=== PATIENT | female | born 1995 | race Caucasian/White ===

== ENCOUNTER 2024-02-25 13:01 | Outpatient (OUT) | payer OTHER, SELFPAY ==
--- NOTE | 2024-02-25 13:03 | US_ITS ---
The [address] [address] Patient Name: LENORA PRADO MRN: [id number] date: 1995 Sex: F Assigned Patient Location: [facility] Current Patient Location: Accession/Order Number: [id number] Exam Date: 02/25/2024 13:04 Report Date: 02/26/2024 08:56 At the request of: SHEELA GERBER Procedure: US pelvis w/ transvaginal EXAM: Pelvic ultrasound HISTORY: . POLYCYSTIC OVARIAN SYNDROME COMPARISON: None. TECHNIQUE: Transabdominal and transvaginal scanning was performed FINDINGS: Scanning of the pelvis demonstrates an anteverted uterus measuring 6.9 x 2.6 x 3.4 cm. Endometrial complex measures 4 mm. Right ovary measures 4.1 x 2 x 4.1 cm. Color-flow is noted. Follicles are noted. Left ovary measures 3.1 x 2.2 x 4.3 cm. Color-flow is noted. Resistive indexes 0.6. Follicles are noted. No fluid is noted in the cul-de-sac. US/US pelvis w/ transvaginal IMPRESSION: 1. Normal-appearing uterus and endometrial complex. 2. Normal-appearing ovaries. Electronically authenticated by: MEDHAT ORDONEZ Date: 02/26/2024 08:56
== END 2024-02-25 13:02 | disposition home or self-care (01) ==
LOC: NOMS 13:02
PROVIDERS: Visit Provider Obstetrics & Gynecology
DX: E28.2 Polycystic ovarian syndrome (principal); G93.2 Benign intracranial hypertension
CPT/HCPCS: 76830; 76856

== ENCOUNTER 2024-03-20 16:10 | Outpatient (REF) | payer OTHER, SELFPAY ==
--- OUTSIDE RECORDS SUMMARY | 2024-03-20 16:17 | XMS_ITS | CCD ---
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 ?C(Tympanic) HR: 107(Peripheral) RR: 16 BP: 176/80 SpO2: 96% HT: 168 cm WT: 126.5 kg BMI: 44.82 Medical Decision Making MEDICAL DECISION MAKING Number and Complexity of Problems Differential Diagnosis: [] [facility] Data External documents reviewed: N/A My EKG interpretation: Noted in chart if applicable My CT interpretation: N/A My X-ray interpretation: Noted in chart if applicable My Ultrasound interpretation: N/A Decision rules/scores evaluated: N/A Discussed with: N/A Treatment and Disposition ED Course: Patient is nontoxic-appearing in no distress. She is somewhat anxious on my exam and states that she has been having intermittent symptoms for weeks. On my exam she feels like there is slightly diminished feeling to her lower jaw bilaterally but states that this is also just coming and going. She is otherwise neurologically intact. She is afebrile here in the ED. As these symptoms are new for her will obtain a CT of the brain without contrast to further evaluate as well as basic lab work. Blood work shows nonspecific leukocytosis but is otherwise unremarkable. CT brain shows no acute process. I discussed the results with the patient at bedside. We discussed the plan of discharge with close follow-up with both her primary care physician as well as the on-call neurologist Dr. Fan. Patient states understanding and agreement with this plan was discharged stable condition. Shared decision making: As above Code status: N/A Assessment/Plan Paresthesias (R20.2: Paresthesia of skin) Orders: Basic Metabolic Panel CBC w/ Auto Diff CT Head or Brain w/o Contrast eGFR U Beta Hcg Qual Disposition Plan Discharge Prescription List Prescriptions No active prescription medications Follow-up With When Contact Information Morenita Comer In 4 days 11/05/2023 EDT [address] [facility], [address] [place] [address]- Business (1) Additional Instructions: Matt Brown In 4 days 11/05/[address], [place] [id number] Business (1) Additional Instructions: Patient Education Paresthesia Problem List/Past Medical History Ongoing Anxiety Facial paresthesia Obesity Smoker Historical [place] palsy of left side of face PCOS - Polycystic ovarian syndrome Procedure/Surgical History tonsillectomy (2004). Medications Inpatient No active inpatient medications Home Zoloft, 10 mg, Oral, Daily Allergies No Known Allergies Social History Alcohol - Denies Alcohol Use, 04/19/2018 Current, 03/23/2020 Current, 07/20/2017 Substance Abuse - Denies Substance Abuse, 04/19/2018 Current, Marijuana, 03/23/2020 Current, Marijuana, 1-2 times per week, 07/20/2017 Tobacco - Low Risk, 07/15/2021 Cigarettes, 04/23/2023 Lab Results WBC: 16.8 E9/L High (11/01/23 02:10:00) RBC: 5.1 E12/L (11/01/23 02:10:00) HGB: 14.8 gm/dL (11/01/23 02:10:00) Hct: 44.1 % (11/01/23:10:00) MCV: 87.3 fL (11/01/23 02:10:00) MCH: 29.2 pg (11/01/23 02:10:00) MCHC: 33.5 gm/dL (11/01/23 02:10:00) RDW: 13.1 % (11/01/23:10:00) Platelet: 249 E9/L (more content not included)... Normal [facility] Comment on above: Result Comment: Elec tronically Signed By: Eusebio Agee DO\.br\Date and Time Signed: 11/01/23 03:43 EDT ED Patient Education Noteon 11-01-2023 ED Patient Education Note Neurology Paresthesia Paresthesia is an abnormal burning or prickling sensation. It is usually felt in the hands, arms, legs, or feet. However, it may occur in any part of the body. Usually, paresthesia is not painful. It may feel like: ? Tingling or numbness. ? Buzzing. ? Itching. Paresthesia may occur without any clear cause, or it may be caused by: ? Breathing too quickly (hyperventilation). ? Pressure on a nerve. ? An underlying medical condition. ? Side effects of a medicine. ? Nutritional deficiencies. ? Exposure to toxic chemicals. Most people experience temporary (transient) paresthesia at some time in their lives. For some people, it may be long-lasting (chronic) because of an underlying medical condition. If you have paresthesia that lasts a long time, you need to be evaluated by your health care provider. Follow these instructions at home: Nutrition Eat a healthy diet. This includes: ? Eating foods that are high in fiber, such as beans, whole grains, and fresh fruits and vegetables. ? Limiting foods that are high in fat and processed sugars, such as fried or sweet foods. Alcohol use ? Avoid or limit alcohol. Too much alcohol can cause a vitamin B deficiency, and vitamin B is needed for healthy nerves. ? Do not drink alcohol if: ? Your health care provider tells you not to drink. ? You are , may be , or are planning to become . ? If you drink alcohol: ? Limit how much you have to: ? 0?1 drink a day for women. ? 0?2 drinks a day for men. ? Know how much alcohol is in your drink. In the [place] one drink equals one 12 oz bottle of beer (355 mL), one 5 oz glass of wine (148 mL), or one 1? oz glass of hard liquor (44 mL). General instructions ? Take yxen-plq-cphufqi and prescription medicines only as told by your health care provider. ? Do not use any products that contain nicotine or tobacco. These products include cigarettes, chewing tobacco, and vaping devices, such as e-cigarettes. If you need help quitting, ask your health care provider. ? If you have diabetes, work closely with your health care provider to keep your blood sugar under control. ? If you have numbness in your feet: ? Check every day for signs of injury or infection. Watch for redness, warmth, and swelling. ? Wear padded socks and comfortable shoes. These help protect your feet. ? Keep all follow-up visits. This is important. Contact a health care provider if you: ? Have paresthesia that gets worse or does not go away. ? Have numbness after an injury. ? Have a burning or prickling feeling that gets worse when you walk. ? Have pain, cramps, or dizziness, or you faint. ? Develop a rash. Get help right away if you: ? Feel muscle weakness. ? Develop new weakness in an arm or leg. ? Have trouble walking or moving. ? Have problems with speech, understanding, or vision. ? Feel confused. ? Cannot control your bladder or bowel movements. These symptoms may be an emergency. Get help right away. Call 911. ? Do not wait to see if the symptoms will go away. ? Do not drive yourself to the hospital. Summary ? Paresthesia is an abnormal burning or prickling sensation that is usually felt in the hands, arms, legs, or feet. It may also occur in other parts of the body. ? Paresthesia may occur without any clear cause, or it may be caused by breathing too quickly (hyperventilation), pressure on a nerve, an underlying medical condition, side effects of a medicine, nutritional deficiencies, or exposure to toxic chemicals. ? If you have paresthesia that lasts a long time, you need to be evaluated by your health care provider. This information is not intended to replace advice given to you by your health care provider. Make sure you discuss any questions you have with your health care provider. Document Revised: 03/20/2022 Document Reviewed: 03/20/2022 Elsevier Patient Education ? 2022 [employer] Normal [facility] ED Patient Summaryon 024 ED Patient Summary [address] [address] Patient Discharge Instructions Person Information Name: LENORA PRADO Age: 28 Years Arrival Date: 11/01/2023 01:16:43 Discharge Diagnosis: Paresthesias Primary Care Physician: Morenita Comer CNP Provider Information Primary Provider: Eusebio Agee DO [employer] Department Supervisor:None The exam and treatment you received in the Emergency Department were for an urgent problem and are not intended as complete care. It is important that you follow up with a doctor, nurse practitioner, or physician?s clinical nursing assistant for ongoing care. If your symptoms become worse or you do not improve as expected and you are unable to reach your usual health care provider, you should return to the Emergency Department. We are available 24 hours a day. LENORA PRADO has been given the following list of patient education materials, prescriptions and follow-up instructions: Follow-up Instructions: With: Address: When: Matt Brown [address], [place] [address] [facility] (1) In 4 days 11/05/2023 With: Address: When: Morenita Comer [address] [place] [address], [address] [place] [address] [facility] (1) In 4 days 11/05/2023 In the event that this physician does not participate in your insurance network, please consult with your insurance company to find a nearby participating provider. Patient Education Materials: Paresthesia A MESSAGE TO ALL PATIENTS REGARDING OPIOIDS PRESCRIPTION OPIOIDS: WHAT YOU NEED TO KNOW Prescription opioids can be used to help relieve gnwtvblz-jd-bavdau pain and are often prescribed following a surgery or injury, or for certain health conditions. These medications can be an important part of the treatment but also come with serious risks. It is important to work with your healthcare provider to make sure you are getting the safest, most effective care. WHAT ARE THE RISKS AND SIDE EFFECTS OF OPIOID USE? Prescription opioids carry serious risks of addiction and overdose, especially with prolonged use. An opioid overdose, often marked by slowed breathing, can cause sudden . The use of prescription opioids can have a number of side effects as well, even when taken as directed: ? Tolerance?meaning you might need to take more of the medication for the same pain relief ? Physical dependence?meaning you have symptoms of withdrawal when a medication is stopped ? Increased sensitivity to pain ? Constipation ? Nausea, vomiting, and dry mouth ? Sleepiness and dizziness ? Confusion ? Depression ? Low levels of testosterone that can result in lower sex drive, energy, and strength ? Itching and sweating RISKS ARE GREATER WITH: ? History of drug misuse, substance use disorder, or overdose ? Mental health conditions (such as depression or anxiety) ? Sleep apnea ? Older age (65 years and older) ? Avoid alcohol while taking prescription opioids. Also, unless specifically advised by your health care provider, medications to avoid include: ? Benzodiazepines (such as Xanax or Valium) ? Muscle relaxants (such as Soma or Flexeril) ? Hypnotics (such as Ambien or Lunesta) ? Other prescription opioids KNOW YOUR OPTIONS Talk to your health care provider about ways to manage your pain that don?t involve prescription opioids. Some of these options may actually work better and have fewer risks and side effects. Options may include: ? Pain relievers such as acetaminophen, ibuprofen, and naproxen ? Some medication that are also used for depression or seizures ? Physical therapy and exercise ? Cognitive behavioral therapy, a psychological, goal-directed approach, in which patients learn how to modify physical, behavioral, and emotional triggers of pain and stress. IF YOU ARE PRESCRIBED OPIOIDS FOR PAIN: ? Never take opioids in greater amounts or more often than prescribed. ? Follow up with your primary health care provider. o Work together to create a plan on how to manage your pain. o Talk about ways to help manage your pain that don?t involve prescription opioids. o Talk about any and all concerns and side effects. ? Help prevent misuse and abuse o Never sell or share prescription opioids. o Never use another person?s prescription opioids. ? Store prescription opioids in a secure place and out of reach of others (this may include visitors, children, friends, and family). ? Safely dispose of unused prescription opioids: Find your community drug take-back program or your pharmacy mail-back program, or flush them down the toilet, following guidance from the Food and Drug Administration (www.fda.gov/Drugs/R esourcesForYou). ? Visit www.cdc.gov/drugover dose to learn about the risks of opioids abuse and overdose. ? If you believe you may be struggling with addiction, tell your health car (more content not included)... Normal [facility] HEMATOLOGYOrdered By: SYSTEM SYSTEM on 11-01-2023 Basophils/100 WBC (Bld) 0.5 % Normal 0.0 - 2.0 % Remisol Heme Basophils/Leukocytes Auto (Bld) [Pure # fraction] 0.1 E9/L Normal 0.0 - 0.2 E9/L Remisol Heme Eosinophils (Bld) [#/Vol] 0.1 E9/L Normal 0.0 - 0.5 E9/L Remisol Heme Eosinophils/100 WBC (Bld) 0.3 % Normal 0.0 - 8.0 % Remisol Heme Erythrocyte distribution width (RBC) [Ratio] 13.1 % Normal 10.9 - 14.2 % Remisol Heme Hematocrit (Bld) [Volume fraction] 44.1 % Normal 34.0 - 46.0 % Remisol Heme Hemoglobin (Bld) [Mass/Vol] 14.8 g/dL Normal 12.0 - 16.0 gm/dL Remisol Heme Lymphocytes (Bld) [#/Vol] 2.7 E9/L Normal 1.0 - 4.0 E9/L Remisol Heme Lymphocytes/100 WBC (Bld) 15.9 % Normal 14.0 - 50.0 % Remisol Heme MCH (RBC) [Entitic mass] 29.2 pg Normal 27.0 - 34.0 pg Remisol Heme MCHC (RBC) [Mass/Vol] 33.5 g/dL Normal 31.4 - 36.0 gm/dL Remisol Heme MCV (RBC) [Entitic vol] 87.3 fL Normal 80.0 - 100.0 fL Remisol Heme Monocytes (Bld) [#/Vol] 0.9 E9/L Normal 0.2 - 1.0 E9/L Remisol Heme Monocytes/100 WBC (Bld) 5.6 % Normal 4.0 - 14.0 % Remisol Heme Neutrophils (Bld) [#/Vol] 13.0 E9/L High 2.0 - 7.5 E9/L Remisol Heme Neutrophils/100 WBC (Bld) 77.7 % High 36.0 - 75.0 % Remisol Heme Platelet mean volume (Bld) [Entitic vol] 8.4 fL Normal 6.4 - 10.8 fL Remisol Heme Platelets (Bld) [#/Vol] 249.0 E9/L Normal 150.0 - 500.0 E9/L Remisol Heme RBC (Bld) [#/Vol] 5.1 E12/L Normal 4.3 - 5.9 E12/L Remisol Heme WBC corrected for nucl RBC Auto (Bld) [#/Vol] 16.8 E9/L High 4.0 - 11.0 E9/L Remisol Heme RAD - Preliminary Cat Scan R eporton 11-01-2023 RAD - Preliminary Cat Scan Report [id number] Normal [facility] SEROLOGYOrdered By: Jorden can on 11-01-2023 HCG.beta subunit (U) [Moles/Vol] Negative Normal [facility] Man Sero U BetaHcg Qualon 11-01-2023 HCG.beta subunit (U) [Moles/Vol] Negative Normal [facility] Comment on above: Performed By: #### 2 [id number] ####[facility] [address] [place] [address] eGFRon 11-01-2023 eGFR 104 mL/min/1.73 m2 Normal >=59 [facility] Comment on above: Order Comment: Order added by Discern Expert. Performed By: #### [id number] ####[facility] [address] [place] [address] Family Medicine Office/Clini c Noteon 10-02-2023 Family Medicine Office/Clinic Note Chief Complaint EST ear infection, cough HPI Staff Lenora is a 27 year old female here for an ear infection and cough 8 weeks ago was diagnosed with bells palsy- symptoms have been since then ears have been popping, itching, and feel closed painful when ears pop headaches cough History of Present Illness Reviewed and agree with above documented HPI by medical hospital sales. Portions of this record may have been created with voice recognition artificial intelligence software, specifically [employer], [employer] and or [employer]. Substitutions may have occurred due to the inherent limitations of voice recognition and artificial intelligence software. Patient is a 27-year-old female presents to [facility] care, for left-sided facial paresthesia, bilateral ear popping, left worse than right, with itchiness, sinus headaches, nonproductive cough. 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 Patient states she was placed on amoxicillin, took all her amoxicillin, continues with left-sided facial paresthesias. Patient states she is able to swallow, has a sense of taste and smell intact, states she has slight facial droop on the left, states she cannot close her left eye, but is much better than she first diagnosed with a few months ago. States she continues with a cough, but is nonproductive, not worsening at night, and without any chest pain or shortness of breath. Patient denies any worsening headache of her life, denies, sore throat, nausea or vomiting, productive cough, worsening cough, or weakness. Review of Systems PHQ Score Initial Depression Screen Score: 0 Physical Exam Vitals & Measurements T: 36.3 ?C(Oral) HR: 96(Peripheral) BP: 136/88 SpO2: 92% HT: 66 in HT: 168 cm WT: 128 kg WT: 281.6 lb BMI: 45.35 General: Well developed, well nourished, in no acute distress, patient does not appear ill or septic, no respiratory disorders noted. Answers questions appropriately and in complete sentences, and follows commands appropriately. Facial droop, more on the lower facial area, states mild, tongue does not deviate, no slurred speech or difficulty swallowing is noted. Patient is neurologically intact. Head/Face: Normocephalic/atraum atic, no upper respiratory infections noted. Facial swelling cellulitis. Eyes: Pupils equal, round, and reactive to light. Conjunctivae and sclerae normal, Ears: Bilateral TMs and bilateral external canals are both within normal limits. Hearing is intact. Nose: Clear nasal drainage is noted. Mouth: Mucous membranes moist. Normal oropharynx, and posterior pharynx without lesions or exudates. Tongue normal Neck: Neck supple. No masses or palpable cervical nodes. Trachea midline. Chest: No chest wall deformity, no chest wall tenderness Lungs: Normal respiratory effort and clear to auscultation throughout, no wheezing, no rales, coarse, or decreased breath sounds are noted on examination. Cardio: regular rate and rhythm, no murmur Pulses: Normal capillary refill Extremity: Patient is able to move all 4 extremities equally well no pain or weakness. Patient is neurovascular intact. Neurologic: Grossly normal Skin: No rashes, ulcerations, or suspicious lesions Lymph Nodes: no lad Mental Status: alert, active Assessment/Plan 27-year-old female presented to [facility] care for left sided facial paresthesia, with a current gnosis of Siddiqui's palsy, diagnosed in January 2023, patient had a slight lower facial droop, at the lip, the remaining facial exam is within normal limits. Patient was neurologically intact. Patient did not appear ill or septic, no respiratory disorder or difficulty swallowing is noted. Patient was given a prescription for Medrol Dosepak, and patient agree with the plan. 1. Facial paresthesia (R20.2: Paresthesia of skin) See above Ordered: methylPREDNISolone, = 1 packet(s), Oral, As Directed, as directed on package labeling, X 6 day(s), # 21 tab(s), Refills(s) 0, Pharmacy: [id number], 168, cm, 04/23/23 15:40:00 EDT, Height/Length Dosing, 128, kg, 04/23/23 15:40:00 EDT, Weight Dosing 2. Current smoker (F17.200: Nicotine dependence, unspecified, uncomplicated) We strongly recommend to quit tobacco use. Cigarette smoking harms nearly every organ of the body, causes many diseases, and reduces the health of smokers in general. Quitting smoking lowers your risk for smoking-related diseases and can add years to your life. We encourage you to visit www.smokefree.gov access to helpful resources including free telephone support. If you decide on prescription treatment to help you quit, we would be happy to provide these. Ordered: Current tobacco smoker 1034F 3. BMI 45.0-49.9, adult (Z68.42: Body mass index [BMI] 45.0-49.9, adult) The standard range for (more content not included)... Normal [facility] Comment on above: Result Comment: Elec tronically Signed By: WILLY ARANGO, TRACI\.br\Date and Time Signed: 04/23/23 16:46 EDT Patient Educationon 04-23-20 Patient Education Neurology Paresthesia Paresthesia is a burning or prickling feeling. This feeling can happen in any part of the body. It often happens in the hands, arms, legs, or feet. Usually, it is not painful. In most cases, the feeling goes away in a short time and is not a sign of a serious problem. If you have paresthesia that lasts a long time, you need to see your doctor. Follow these instructions at home: Nutrition Eat a healthy diet. This includes: ? Eating foods that are high in fiber. These include beans, whole grains, and fresh fruits and vegetables. ? Limiting foods that are high in fat and sugar. These include fried or sweet foods. Alcohol use ? Do not drink alcohol if: ? Your doctor tells you not to drink. ? You are , may be , or are planning to become . ? If you drink alcohol: ? Limit how much you have to: ? 0?1 drink a day for women. ? 0?2 drinks a day for men. ? Know how much alcohol is in your drink. In the [place] one drink equals one 12 oz bottle of beer (355 mL), one 5 oz glass of wine (148 mL), or one 1? oz glass of hard liquor (44 mL). General instructions ? Take bhuc-arm-itvrwou and prescription medicines only as told by your doctor. ? Do not smoke or use any products that contain nicotine or tobacco. If you need help quitting, ask your doctor. ? If you have diabetes, work with your doctor to make sure your blood sugar stays in a healthy range. ? If your feet feel numb: ? Check for redness, warmth, and swelling every day. ? Wear padded socks and comfortable shoes. These help protect your feet. ? Keep all follow-up visits. Contact a doctor if: ? You have paresthesia that gets worse or does not go away. ? You lose feeling (have numbness) after an injury. ? Your burning or prickling feeling gets worse when you walk. ? You have pain or cramps. ? You feel dizzy or you faint. ? You have a rash. Get help right away if: ? You feel weak or have new weakness in an arm or leg. ? You have trouble walking or moving. ? You have problems speaking, understanding, or seeing. ? You feel confused. ? You cannot control when you pee (urinate) or poop (have a bowel movement). These symptoms may be an emergency. Get help right away. Call 911. ? Do not wait to see if the symptoms will go away. ? Do not drive yourself to the hospital. Summary ? Paresthesia is a burning or prickling feeling. It often happens in the hands, arms, legs, or feet. ? In most cases, the feeling goes away in a short time and is not a sign of a serious problem. ? If you have paresthesia that lasts a long time, you need to be seen by your doctor. This information is not intended to replace advice given to you by your health care provider. Make sure you discuss any questions you have with your health care provider. Document Revised: 03/20/2022 Document Reviewed: 03/20/2022 [employer] Patient Education ? 2022 [employer] Nutrition BMI for Adults What is BMI? Body mass index (BMI) is a number that is calculated from a person's weight and height. BMI can help estimate how much of a person's weight is composed of fat. BMI does not measure body fat directly. Rather, it is an alternative to procedures that directly measure body fat, which can be difficult and expensive. BMI can help identify people who may be at higher risk for certain medical problems. What are BMI measurements used for? BMI is used as a screening tool to identify possible weight problems. It helps determine whether a person is obese, overweight, a healthy weight, or underweight. BMI is useful for: ? Identifying a weight problem that may be related to a medical condition or may increase the risk for medical problems. ? Promoting changes, such as changes in diet and exercise, to help reach a healthy weight. BMI screening can be repeated to see if these changes are working. How is BMI calculated? BMI involves measuring your weight in relation to your height. Both height and weight are measured, and the BMI is calculated from those numbers. This can be done either in [place] or metric measurements. Note that charts and online BMI calculators are available to help you find your BMI quickly and easily without having to do these calculations yourself. To calculate your BMI in [place] measurements: 1. Measure your weight in pounds (lb). 2. Multiply the number of pounds by 703. ? For example, for a person who weighs 180 lb, multiply that number by 703, which equals 126,540. 3. Measure your height in inches. Then multiply that number by itself to get a measurement called inches squared. ? For example, for a person who is 70 inches tall, the inches squared measurement is 70 inches x 70 inches, which equals 4,900 inches squared. 4. Divide the total from step 2 (number of lb x 703) by the total from step 3 (inches square (more content not included)... [facility] Formson 02-19-2023 Forms [id number] #1.00CD:[address] [facility] Consent for Treatmenton 01-22 Consent for Treatment [id number] #1.00CD:[address] [facility] Discharge Instructionson Discharge Instructions [id number]#1.00CD:[address] [facility] ED Clinical Summaryon 2022 ED Clinical Summary [address] [address] ED Clinical Summary Person Information Name: PRADO LENORA [place] Age: 27 Years : 1995 Sex: Female Language: [place] PCP: Morenita Comer CNP Marital Status: Single Phone: [phone] Visit Id: Visit Reason: Anxiety; Allergic reaction - minor; POSS ALLERGIC REACTION, FACIAL NUMBNESS Speciality: Acuity: 4 Enc Type: Emergency Med Service: Emergency Arrival: 02/18/2023 00:49:13 Discharge: 02/18/2023 01:59:37 LOS: 000 01:10 Checkin: 02/18/2023 00:49:13 Checkout: 02/18/2023 01:59:37 Dispo Type: Home (Routine DC) EVENTS: Event Name Event Status Request Date/Time Start Date/Time Complete Date/Time Arrive Complete 02/18/2023 00:49:13 02/18/2023 00:49:13 02/18/2023 00:49:13 Document Home Meds Request 02/18/2023 00:49:13 Triage Complete 02/18/2023 00:49:13 02/18/2023 01:01:10 02/18/2023 01:01:10 Dr Exam Complete 02/18/2023 00:52:02 02/18/2023 00:52:02 02/18/2023 00:52:02 Registration Complete 02/18/2023 00:52:02 02/18/2023 00:55:04 02/18/2023 00:55:04 Reg Complete Request 02/18/2023 00:55:04 Reg Bed Request Complete 02/18/2023 00:55:04 02/18/2023 00:55:04 02/18/2023 00:55:04 Bed Assign Complete 02/18/2023 00:57:27 02/18/2023 00:57:27 02/18/2023 00:57:27 RN Exam Complete 02/18/2023 00:57:27 02/18/2023 01:21:25 02/18/2023 01:21:25 Meds Admin Complete 02/18/2023 01:08:48 02/18/2023 01:14:35 Meds Admin Complete 02/18/2023 01:15:34 02/18/2023 01:58:58 Discharge Complete 02/18/2023 01:51:47 02/18/2023 01:59:42 02/18/2023 01:59:42 Transfer Complete 02/18/2023 01:59:42 02/18/2023 01:59:42 02/18/2023 01:59:42 ADDRESS: [address] [facility] [id number] PHYS DOC NOTES: MEDICAL INFORMATION: Prescriptions Given: New Medications [id number], [address] [place], [place] [id number], [phone] amoxicillin (amoxicillin 875 mg Tab) 1 Tablets By Mouth 2 times a day for 10 Days. Refills: 0. ocular lubricant (ocular lubricant Oint) Eye left, BID. Refills: 0. predniSONE (predniSONE 50 mg Tab) 1 Tablets By Mouth every day for 5 Days. Refills: 0. Medications to Continue with No Changes Other Medications sertraline (sertraline 50 mg Tab) 1 Tablets By Mouth every day. PATIENT EDUCATION INFORMATION: Instructions: Otitis Media, Adult, Harg-pf-Juws; Siddiqui's Palsy, Adult Follow up: With: Address: When: Morenita Comer [address] [place] [address], [address] [place] [address] Business (1) In 3 days 02/21/2023 Comments: Take the antibiotics and the steroids as prescribed to completed the course. Use the eye ointment 2-3 times per day as needed. Please follow-up with your primary care doctor next 2 to 3 days. Please return to the ED for any new or worsening symptoms. DIAGNOSIS: Siddiqui's palsy; Otitis media Normal [facility] ED Note-Physicianon 02-19-20 ED Note-Physician Basic Information Time Seen: Natali Perry DO 02/18/2023 00:52 Chief Complaint pt states she is having a allergic reaction. states tongue is tiingling. states took benadryl. states was smoking marjaunia prior to event. History of Present Illness Patient is a 27-year-old female with past medical history of anxiety, PCOS presenting to the ED for evaluation of facial tingling, weakness in addition to dry mouth. Patient states she has been having intermittent ear pain predominantly on the left side for the last several days, she used her friend's Ciprodex drops this evening and then also took Benadryl which she does not normally take. Patient states she was outside smoking marijuana and tobacco when she started noticing decrease sensation on the left side of her face in addition to tingling tongue. Patient denies any weakness in her arms or her legs, denies previous history of this. States she does get her marijuana from a dispensary has not changed dispensary's. Review of Systems A 10 point review of systems is negative except as noted above. Medical and Surgical History: Reviewed and noted Social history: Lives at home Tobacco: Denies Physical Exam Vitals & Measurements T: 36.2 ?C(Oral) HR: 126(Peripheral) RR: 20 BP: 187/95 SpO2: 100% HT: 168 cm WT: 130 kg BMI: 46.06 General: Well developed, non toxic appearing, no acute distress HEENT: Head atraumatic, Mucosa moist, hearing grossly normal, no effusion behind the right TM, left TM bulging and erythematous Neck: No JVD, tracheal deviation Cardiac: Regular rate, rhythm, no murmurs, or gallops, 2+ radial pulses Respiratory: Lungs clear to auscultation B/L, normal respiratory effort Abdomen: Soft non tender, no rebound or guarding, no peritoneal signs Extremities: No edema noted in the LE B/L, no tenderness to palpation Neurologic: Alert and oriented, speech clear, facial droop on the left side of the face, unable to close the left eye, unable to raise the eyebrows on the left, decreased sensation on the left side, no arm drift, no leg drift, sensation intact to the upper and lower extremities bilaterally, no ataxia with finger-nose testing, no change in speech Skin: No rashes or lesions Psych: Appropriate mood and behavior Medical Decision Making MEDICAL DECISION MAKING Number and Complexity of Problems Differential Diagnosis: [] [facility] Data External documents reviewed: [] My EKG interpretation: [] My CT interpretation: [] My X-ray interpretation: [] My Ultrasound interpretation: [] Decision rules/scores evaluated: [] Discussed with: [] Treatment and Disposition ED Course: Patient is a 27-year-old female presenting to the ED for evaluation of tongue numbness and tingling, ear pain and change in sensation of the face. Patient is nontoxic and on arrival, no acute distress. Patient does have left-sided facial weakness in addition she has the inability to close her left eye or raise her eyebrows on the left consistent with Siddiqui's palsy. She also has evidence of an otitis media on examination. Explained the findings to the patient that likely the otitis media is causing the Siddiqui's palsy. She is given amoxicillin in addition to prednisone in the ED. She is tachycardic hypertensive on arrival however patient does report she has significant anxiety. Patient was observed with improvement of her vitals. Patient discharged home with prednisone, amoxicillin in addition to lubricating eyedrops. She is to follow-up with her primary care doctor in the next 2 to 3 days. She is return to the ED for any new or worsening symptoms. Shared decision making: [] Code status: [] Assessment/Plan Siddiqui's palsy (G51.0: Siddiqui's palsy) Otitis media (H66.90: Otitis media, unspecified, unspecified ear) Orders: amoxicillin, 875 mg = 1 tab(s), Oral, BID, X 10 day(s), # 20 tab(s), Refills(s) 0, Pharmacy: [facility] #[id number], 168, cm, 02/18/23 1:01:00 EDT, Height/Length Dosing, 130, kg, 02/18/23 1:01:00 EDT, Weight Dosing amoxicillin, 875 mg = 1 tab(s), Tab, Oral, Once, Stop date 02/18/23 1:08:00 EDT, STAT, Start date 02/18/23 1:08:00 EDT, 02/18/23 1:08:00 EDT ocular lubricant, 1 isatu, Ointment, OPTH, Once, Stop date 02/18/23 1:15:00 EDT, STAT, Start date 02/18/23 1:15:00 EDT ocular lubricant, See Instructions, 3.5 gm, Refill(s) 0, Eye left, BID, [facility] #[id number], 168, cm, 02/18/23 1:01:00 EDT, Height/Length Dosing, 130, kg, 02/18/23 1:01:00 EDT, Weight Dosing predniSONE, 50 mg = 1 tab(s), Oral, Daily, X 5 day(s), # 5 tab(s), Refills(s) 0, [facility]: [id number], 168, cm, 02/18/23 1:01:00 EDT, Height/Length Dosing, 130, kg, 02/18/23 1:01:00 EDT, Weight Dosing predniSONE, 60 mg = 3 tab(s), Tab, Oral, Once, Stop date 02/18/23 1:08:00 EDT, STAT, Start date 02/18/23 1:08:00 EDT, 02/18/23 1:08:00 EDT Medications Administered Given amoxicillin 875 mg Tab, 875 mg, Oral predniSONE 20 mg Tab, 60 mg, Oral Disposition Plan Discharge Prescription List Prescrip (more content not included)... Normal [facility] Comment on above: Result Comment: Elec tronically Signed By: Natali Perry DO\.br\Date and Time Signed: 02/18/23 01:56 EDT ED Patient Education Noteon 02-18-2023 ED Patient Education Note ENT Otitis Media, Adult Otitis media is a condition in which the middle ear is red and swollen (inflamed) and full of fluid. The middle ear is the part of the ear that contains bones for hearing as well as air that helps send sounds to the brain. The condition usually goes away on its own. What are the causes? This condition is caused by a blockage in the eustachian tube. This tube connects the middle ear to the back of the nose. It normally allows air into the middle ear. The blockage is caused by fluid or swelling. Problems that can cause blockage include: ? A cold or infection that affects the nose, mouth, or throat. ? Allergies. ? An irritant, such as tobacco smoke. ? Adenoids that have become large. The adenoids are soft tissue located in the back of the throat, behind the nose and the roof of the mouth. ? Growth or swelling in the upper part of the throat, just behind the nose (nasopharynx). ? Damage to the ear caused by a change in pressure. This is called barotrauma. What increases the risk? You are more likely to develop this condition if you: ? Smoke or are exposed to tobacco smoke. ? Have an opening in the roof of your mouth (cleft palate). ? Have acid reflux. ? Have problems in your body's defense system (immune system). What are the signs or symptoms? Symptoms of this condition include: ? Ear pain. ? Fever. ? Problems with hearing. ? Being tired. ? Fluid leaking from the ear. ? Ringing in the ear. How is this treated? This condition can go away on its own within 3?5 days. But if the condition is caused by germs (bacteria) and does not go away on its own, or if it keeps coming back, your doctor may: ? Give you antibiotic medicines. ? Give you medicines for pain. Follow these instructions at home: ? Take qjbi-smn-upehxcg and prescription medicines only as told by your doctor. ? If you were prescribed an antibiotic medicine, take it as told by your doctor. Do not stop taking it even if you start to feel better. ? Keep all follow-up visits. Contact a doctor if: ? You have bleeding from your nose. ? There is a lump on your neck. ? You are not feeling better in 5 days. ? You feel worse instead of better. Get help right away if: ? You have pain that is not helped with medicine. ? You have swelling, redness, or pain around your ear. ? You get a stiff neck. ? You cannot move part of your face (paralysis). ? You notice that the bone behind your ear hurts when you touch it. ? You get a very bad headache. Summary ? Otitis media means that the middle ear is red, swollen, and full of fluid. ? This condition usually goes away on its own. ? If the problem does not go away, treatment may be needed. You may be given medicines to treat the infection or to treat your pain. ? If you were prescribed an antibiotic medicine, take it as told by your doctor. Do not stop taking it even if you start to feel better. ? Keep all follow-up visits. This information is not intended to replace advice given to you by your health care provider. Make sure you discuss any questions you have with your health care provider. Document Revised: 10/17/2021 Document Reviewed: 10/17/2021 [employer] Patient Education ? 2022 [employer] Neurology Siddiqui's Palsy, Adult Siddiqui's palsy is a short-term inability to move muscles in a part of the face. The inability to move, also called paralysis, results from inflammation or compression of the seventh cranial nerve. This nerve travels along the skull and under the ear to the side of the face. This nerve is responsible for facial movements that include blinking, closing the eyes, smiling, and frowning. What are the causes? The exact cause of this condition is not known. It may be caused by an infection from a virus, such as the chickenpox (herpes zoster), Milena?Ruiz, or mumps virus. What increases the risk? You are more likely to develop this condition if: ? You are . ? You have diabetes. ? You have had a recent infection in your nose, throat, or airways. ? You have a weakened body defense system (immune system). ? You have had a facial injury, such as a fracture. ? You have a family history of Siddiqui's palsy. What are the signs or symptoms? Symptoms of this condition include: ? Weakness on one side of the face. ? Drooping eyelid and corner of the mouth. ? Excessive tearing in one eye. ? Difficulty closing the eyelid. ? Dry eye. ? Drooling. ? Dry mouth. ? Changes in taste. ? Change in facial appearance. ? Pain behind one ear. ? Ringing in one or both ears. ? Sensitivity to sound in one ear. ? Facial twitching. ? Headache. ? Impaired speech. ? Dizziness. ? Difficulty eating or drinking. Most of the time, only one side of the face is affected. In rare cases, Siddiqui's palsy may affect the whole face. How is this diagnosed? This condition is diagnosed bas (more content not included)... Normal [facility] ED Patient Summaryon 023 ED Patient Summary [place] [id number] Patient Discharge Instructions Person Information Name: LENORA PRADO Age: 27 Years Arrival Date: 02/18/2023 00:49:13 Discharge Diagnosis: Siddiqui's palsy; Otitis media Primary Care Physician: Morenita Comer CNP Provider Information Primary Provider: Natali Perry DO [employer] Department Supervisor:None The exam and treatment you received in the Emergency Department were for an urgent problem and are not intended as complete care. It is important that you follow up with a doctor, nurse practitioner, or physician?s clinical nursing assistant for ongoing care. If your symptoms become worse or you do not improve as expected and you are unable to reach your usual health care provider, you should return to the Emergency Department. We are available 24 hours a day. LENORA PRADO has been given the following list of patient education materials, prescriptions and follow-up instructions: Follow-up Instructions: With: Address: When: Morenita Comer [address] [place] [address], [address] [place] [id number] Business (1) In 3 days 02/21/2023 Comments: Take the antibiotics and the steroids as prescribed to completed the course. Use the eye ointment 2-3 times per day as needed. Please follow-up with your primary care doctor next 2 to 3 days. Please return to the ED for any new or worsening symptoms. In the event that this physician does not participate in your insurance network, please consult with your insurance company to find a nearby participating provider. Patient Education Materials: Otitis Media, Adult, Gvyw-va-Ouwl; Siddiqui's Palsy, Adult A MESSAGE TO ALL PATIENTS REGARDING OPIOIDS PRESCRIPTION OPIOIDS: WHAT YOU NEED TO KNOW Prescription opioids can be used to help relieve qtysmcqa-en-qxwbbw pain and are often prescribed following a surgery or injury, or for certain health conditions. These medications can be an important part of the treatment but also come with serious risks. It is important to work with your healthcare provider to make sure you are getting the safest, most effective care. WHAT ARE THE RISKS AND SIDE EFFECTS OF OPIOID USE? Prescription opioids carry serious risks of addiction and overdose, especially with prolonged use. An opioid overdose, often marked by slowed breathing, can cause sudden . The use of prescription opioids can have a number of side effects as well, even when taken as directed: ? Tolerance?meaning you might need to take more of the medication for the same pain relief ? Physical dependence?meaning you have symptoms of withdrawal when a medication is stopped ? Increased sensitivity to pain ? Constipation ? Nausea, vomiting, and dry mouth ? Sleepiness and dizziness ? Confusion ? Depression ? Low levels of testosterone that can result in lower sex drive, energy, and strength ? Itching and sweating RISKS ARE GREATER WITH: ? History of drug misuse, substance use disorder, or overdose ? Mental health conditions (such as depression or anxiety) ? Sleep apnea ? Older age (65 years and older) ? Avoid alcohol while taking prescription opioids. Also, unless specifically advised by your health care provider, medications to avoid include: ? Benzodiazepines (such as Xanax or Valium) ? Muscle relaxants (such as Soma or Flexeril) ? Hypnotics (such as Ambien or Lunesta) ? Other prescription opioids KNOW YOUR OPTIONS Talk to your health care provider about ways to manage your pain that don?t involve prescription opioids. Some of these options may actually work better and have fewer risks and side effects. Options may include: ? Pain relievers such as acetaminophen, ibuprofen, and naproxen ? Some medication that are also used for depression or seizures ? Physical therapy and exercise ? Cognitive behavioral therapy, a psychological, goal-directed approach, in which patients learn how to modify physical, behavioral, and emotional triggers of pain and stress. IF YOU ARE PRESCRIBED OPIOIDS FOR PAIN: ? Never take opioids in greater amounts or more often than prescribed. ? Follow up with your primary health care provider. o Work together to create a plan on how to manage your pain. o Talk about ways to help manage your pain that don?t involve prescription opioids. o Talk about any and all concerns and side effects. ? Help prevent misuse and abuse o Never sell or share prescription opioids. o Never use another person?s prescription opioids. ? Store prescription opioids in a secure place and out of reach of others (this may include visitors, children, friends, and family). ? Safely dispose of unused prescription opioids: Find your community drug take-back program or your pharmacy mail-back program, or flush them down the toilet, following guidance from the Food and Drug Administration (www.fda.gov (more content not included)... Normal [facility] Vital Signs Date Time Vital Sign Value Performing Clinician Facility 11-01-2023 03:30-0400 Blood Pressure Location Eusebio Agee [facility] 11-01-2023 03:30-0400 Diastolic blood pressure 90 mm[Hg] Eusebio Agee [facility] 11-01-2023 03:30-0400 Heart rate 82 /min Eusebio Cyndie [facility] 11-01-2023 03:30-0400 Mean blood pressure 118 mm[Hg] Eusebio Cyndie [facility] 11-01-2023 03:30-0400 Respiratory rate 17 /min Eusebio Cyndie [facility] 11-01-2023 03:30-0400 SaO2% (BldA) [Mass fraction] 92 % Eusebio Cyndie [facility] 11-01-2023 03:30-0400 Systolic blood pressure 175 mm[Hg] Eusebio Cyndie [facility] 11-01-2023 03:00-0400 Diastolic blood pressure 99 mm[Hg] Eusebio Cyndie [facility] 11-01-2023 03:00-0400 Heart rate 85 /min Eusebio Cyndie [facility] 11-01-2023 03:00-0400 Mean blood pressure 124 mm[Hg] Eusebio Cyndie [facility] 11-01-2023 03:00-0400 Respiratory rate 14 /min Eusebio Cyndie [facility] 11-01-2023 03:00-0400 SaO2% (BldA) [Mass fraction] 95 % Eusebio Cyndie [facility] 11-01-2023 03:00-0400 Systolic blood pressure 173 mm[Hg] Eusebio Cyndie [facility] 11-01-2023 02:30-0400 Blood Pressure Location Eusebio Cyndie [facility] 11-01-2023 02:30-0400 Diastolic blood pressure 93 mm[Hg] Eusebio Cyndie [facility] 11-01-2023 02:30-0400 Heart rate 90 /min Eusebio Cyndie [facility] 11-01-2023 02:30-0400 Mean blood pressure 121 mm[Hg] Eusebio Cyndie [facility] 11-01-2023 02:30-0400 Respiratory rate 11 /min Eusebio Cyndie [facility] 11-01-2023 02:30-0400 SaO2% (BldA) [Mass fraction] 97 % Eusebio Cyndie [facility] 11-01-2023 02:30-0400 Systolic blood pressure 176 mm[Hg] Eusebio Cyndie [facility] 11-01-2023 01:29-0400 Body temperature 99.5 [degF] Eusebio Cyndie [facility] 11-01-2023 01:29-0400 Heart rate 107 /min Eusebio Cyndie [facility] 11-01-2023 01:29-0400 Respiratory rate 16 /min Eusebio Cyndie [facility] 04-23-2023 15:39-0400 Blood Pressure Location TRACI BIRDTIZ [facility] 04-23-2023 15:39-0400 Body temperature 97.34 [degF] TRACI BIRDTIZ [facility] 04-23-2023 15:39-0400 Diastolic blood pressure 88 mm[Hg] TRACI AGUILERA [facility] 04-23-2023 15:39-0400 Heart rate 96 /min TRACI AGUILERA [facility] 04-23-2023 15:39-0400 SaO2% (BldA) [Mass fraction] 92 % TRACI WILLY [facility] 04-23-2023 15:39-0400 Systolic blood pressure 136 mm[Hg] TRACI AGUILERA [facility] 02-18-2023 01:54-0400 Diastolic blood pressure 90 mm[Hg] Kaylinn Dokken [facility] 02-18-2023 01:54-0400 Heart rate 89 /min Kaylinn Dokken [facility] 02-18-2023 01:54-0400 Respiratory rate 18 /min [facility] [facility] 02-18-2023 01:54-0400 SaO2% (BldA) [Mass fraction] 99 % Kaylinn Dokken [facility] 02-18-2023 01:54-0400 Systolic blood pressure 142 mm[Hg] Kaylinn Dokken [facility] 02-18-2023 01:33-0400 Heart rate 93 /min Kaylinn Dokken [facility] 02-18-2023 01:33-0400 Respiratory rate 18 /min Kaylinn Dokken [facility] 02-18-2023 01:33-0400 SaO2% (BldA) [Mass fraction] 99 % Kaylinn Dokken [facility] 02-18-2023 00:57-0400 Body temperature 97.16 [degF] Kaylinn Dokken [facility] 02-18-2023 00:57-0400 Diastolic blood pressure 95 mm[Hg] Natali Perry [facility] 02-18-2023 00:57-0400 Heart rate 126 /min Natali Perry [facility] 02-18-2023 00:57-0400 Respiratory rate 20 /min Replaced By [facility] Perry [facility] 02-18-2023 00:57-0400 SaO2% (BldA) [Mass fraction] 100 [facility] 02-18-2023 00:57-0400 Systolic blood pressure 187 mm[Hg] cait Perry [facility] Encounters Encounter Date Encounter Type Care Provider Facility Start: 02-26-2024 End: 02-26-2024 ambulatory VARUN W MURCEK Not Available Start: 02-21-2024 End: 02-21-2024 Patient encounter procedure Morenita Comer Work Phone: [facility] Work Phone: Start: 02-21-2024 End: 02-21-2024 ambulatory Morenita Joshua Comer Work Phone: [facility] Work Phone: Start: 02-19-2024 End: 02-19-2024 ambulatory VARUN W MURCEK Not Available Start: 02-11-2024 End: 02-11-2024 ambulatory VARUN W MURCEK Not Available Start: 02-04-2024 End: 02-04-2024 ambulatory MELISSA CAMPOS Not Available Start: 01-28-2024 End: 01-28-2024 ambulatory SHEELA GERBER Not Available Start: 01-28-2024 End: 01-28-2024 ambulatory HIRAL LAM Not Available Start: 01-21-2024 End: 01-21-2024 ambulatory AYDIN BELLO Not Available Start: 12-10-2023 End: 12-11-2023 ambulatory Loc Helm Facility:[facility] Start: 12-10-2023 End: 12-10-2023 Patient encounter procedure Loc Helm [facility] Start: 11-29-2023 End: 11-29-2023 ambulatory LOC HELM Not Available Start: 11-01-2023 End: 11-01-2023 Emergency department patient visit Eusebio Agee Facility:[facility] Start: 11-01-2023 End: 11-01-2023 Emergency department patient visit Eusebio Agee [facility] Start: 04-23-2023 End: 04-24-2023 ambulatory NBA AGUILERA Facility:[facility] Start: 04-23-2023 End: 04-23-2023 Patient encounter procedure TRACI AGUILERA [facility] Start: 02-18-2023 End: 02-18-2023 Emergency department patient visit Natali Real Dosoco Facility:[facility] Start: 02-18-2023 End: 02-18-2023 Emergency department patient visit Natali Perry [facility] Procedures Date Procedure Procedure Detail Performing Clinician Start: 07-23-2004 Tonsillectomy Natali luna Plan of Treatment Date Care Activity Detail Author Start: 02-21-2024 [facility] Borrelia burgdorferi Ab [Interpretation] in Serum [facility] Borrelia burgdorferi IgG Ab [Presence] in Serum or Plasma by Immunoassay [facility] Borrelia burgdorferi IgG+IgM Ab [Presence] in Serum by Immunoassay [facility] Borrelia burgdorferi IgM Ab [Presence] in Serum or Plasma by Immunoassay [facility] Immunizations Immunization Date Immunization Notes Care Provider Fa didi 04-19-2016 meningococcal ACWY vaccine, unspecified formulation TRACI AGUILERA [facility] 09-27-2011 hepatitis A vaccine, unspecified formulation TRACI AGUILERA [facility] 09-27-2011 HPV, unspecified formulation TRACI AGUILERA [facility] 05-24-2011 HPV, unspecified formulation TRACI AGUILERA [facility] 05-24-2011 influenza virus vaccine, unspecified formulation TRACI AGUILERA [facility] 03-21-2011 hepatitis A vaccine, unspecified formulation TRACI AGUILERA [facility] 03-21-2011 HPV, unspecified formulation TRACI AGUILERA [facility] 03-21-2011 meningococcal ACWY vaccine, unspecified formulation TRACI AGUILERA [facility] 03-21-2011 tetanus toxoid, reduced diphtheria toxoid, and acellular pertussis vaccine, adsorbed TRACI AGUILERA [facility] 10-29-2002 DTaP, unspecified formulation TRACI AGUILERA [facility] 10-29-2002 measles, mumps and rubella virus vaccine TRACI AGUILERA [facility] 10-29-2002 poliovirus vaccine, unspecified formulation TRACI AGUILERA [facility] 03-10-1999 hepatitis B vaccine, pediatric or pediatric/adolescent dosage TRACI AGUILERA [facility] 03-10-1999 measles, mumps and rubella virus vaccine TRACI AGUILERA [facility] 01-20-1999 diphtheria, tetanus toxoids and acellular pertussis vaccine, Haemophilus influenzae type b conjugate, and poliovirus vaccine, inactivated ([id number]-[id number]) [facility] 05-12-1998 DTaP, unspecified formulation [facility] 05-12-1998 haemophilus influenz ae type b vaccine, PRP-OMP conjugate [facility] 02-18-1998 diphtheria, tetanus toxoids and acellular pertussis vaccine, Haemophilus influenzae type b conjugate, and poliovirus vaccine, inactivated ([id number]) [facility] 1997 diphtheria, tetanus toxoids and acellular pertussis vaccine, Haemophilus influenzae type b conjugate, and poliovirus vaccine, inactivated (QLwY-Pen-GGF) [facility] 1997 hepatitis B vaccine, pediatric or pediatric/adolescent dosage [facility] 1997 hepatitis B vaccine, pediatric or pediatric/adolescent dosage [facility] NEGATED: Highlighted row has not occurred!04-23-2023 influenza virus vaccine, unspecified formulation [facility] NEGATED: Highlighted row has not occurred!04-23-2023 SARS-CoV-2 mRNA (tozinameran 5y-11y) vaccine [facility] Payers Date Payer Category Payer Unknown [id number] 2023 Self-pay 1997 Unknown [id number] 1997 Unknown [id number] 1997 Unknown [id number] 1997 Unknown [id number] 1997 Unknown [id number] 1997 Unknown [id number] 1997 Unknown [id number] 1997 Unknown [id number] [id number] 1997 Unknown [id number] 1997 Unknown [id number] [id number] 1997 Unknown [id number] [id number] 1997 Unknown [id number] [id number] 1997 Unknown [id number] Medicaid [employer] [id number] Unknown Regular Auto/Liability 35-C4 [id number] Unknown [id number] Social History Date Type Detail Facility Start: 07-15-2021 Tobacco smoking status Ex-smoker (finding) [facility] Tobacco smoking status Never [facility] Sex Assigned At Female [facility] Tobacco Cigarettes [facility] Comment on above: smokes 1 pack per we ek Tobacco smoking status No Smoking Status Entered [facility] Start: 07-06-2019 Tobacco smoking status NHIS Current some day smoker [facility] Start: 1995 Sex Assigned At Female F [facility] Functional Status Date Assessment Result Facility 11-01-2023 Functional Status N/A [facility] 04-23-2023 Functional Status N/A [facility] 02-18-2023 Functional Status N/A [facility] Evaluation + Plan note 11-01-2023 Note Date & Type Note Facility 11-01-2023 Evaluation + Plan note Extrac kiersten from: Title:ED Note Author:Eusebio Agee DO Date :11/01/23 Paresthesias (R20.2: Paresth esia of skin) Orders: Basic Metabolic Panel CBC w/ Auto Diff CT Head or Brain w/o Contrast eGFR U Beta Hcg Qual [facility] Hospital Discharge instructions 11-01-2023 Note Date & Type Note Facility 11-01-2023 Hospital Discharg e instructions Patient Education 11/01/2023 03:51:58 Paresthesia Paresthesia Paresthesia is an abnormal burning or prickling sensation. It is usually felt in the hands, arms, legs, or feet. However, it may occur in any part of the body. Usually, paresthesia is not painful. It may feel like: Tingling or numbness. Buzzing. Itching. Paresthesia may occur without any clear cause, or it may be caused by: Breathing too quickly (hyperventilation). Pressure on a nerve. An underlying medical condition. Side effects of a medicine. Nutritional deficiencies. Exposure to toxic chemicals. Most people experience temporary (transient) paresthesia at some time in their lives. For some people, it may be long-lasting (chronic) because of an underlying medical condition. If you have paresthesia that lasts a long time, you need to be evaluated by your health care provider. Follow these instructions at home: Nutrition Eat a healthy diet. This includes: Eating foods that are high in fiber, such as beans, whole grains, and fresh fruits and vegetables. Limiting foods that are high in fat and processed sugars, such as fried or sweet foods. Alcohol use Avoid or limit alcohol. Too much alcohol can cause a vitamin B deficiency, and vitamin B is needed for healthy nerves. Do not drink alcohol if: ?Your health care provider tells you not to drink. ?You are , may be , or are planning to become . If you drink alcohol: ?Limit how much you have to: ?0 1 drink a day for women. ?0 2 drinks a day for men. ?Know how much alcohol is in your drink. In the [place] one drink equals one 12 oz bottle of beer (355 mL), one 5 oz glass of wine (148 mL), or one 1 oz glass of hard liquor (44 mL). General instructions Take rwzz-okf-xwojbaf and prescription medicines only as told by your health care provider. Do not use any products that contain nicotine or tobacco. These products include cigarettes, chewing tobacco, and vaping devices, such as e-cigarettes. If you need help quitting, ask your health care provider. If you have diabetes, work closely with your health care provider to keep your blood sugar under control. If you have numbness in your feet: ?Check every day for signs of injury or infection. Watch for redness, warmth, and swelling. ?Wear padded socks and comfortable shoes. These help protect your feet. Keep all follow-up visits. This is important. Contact a health care provider if you: Have paresthesia that gets worse or does not go away. Have numbness after an injury. Have a burning or prickling feeling that gets worse when you walk. Have pain, cramps, or dizziness, or you faint. Develop a rash. Get help right away if you: Feel muscle weakness. Develop new weakness in an arm or leg. Have trouble walking or moving. Have problems with speech, understanding, or vision. Feel confused. Cannot control your bladder or bowel movements. These symptoms may be an emergency. Get help right away. Call 911. Do not wait to see if the symptoms will go away. Do not drive yourself to the hospital. Summary Paresthesia is an abnormal burning or prickling sensation that is usually felt in the hands, arms, legs, or feet. It may also occur in other parts of the body. Paresthesia may occur without any clear cause, or it may be caused by breathing too quickly (hyperventilation), pressure on a nerve, an underlying medical condition, side effects of a medicine, nutritional deficiencies, or exposure to toxic chemicals. If you have paresthesia that lasts a long time, you need to be evaluated by your health care provider. This information is not intended to replace advice given to you by your health care provider. Make sure you discuss any questions you have with your health care provider. Document Revised: 03/20/2022 Document Reviewed: 03/20/2022 [employer] Patient Education 2022 [employer] Follow Up Care 11/01/2023 01:20:14 With:Matt Brown Address: [address] [place] [address]- Business (1) When:11/05/2023 With:Morenita Comer Address: [address], [address] [place] [address]- Business (1) When:11/05/2023 [facility] Hospital Discharge instructions 04-23-2023 Note Date & Type Note Facility 04-23-2023 Hospital Discharg e instructions Patient Education 04/23/2023 16:46:23 BMI for Adults BMI for Adults What is BMI? Body mass index (BMI) is a number that is calculated from a person's weight and height. BMI can help estimate how much of a person's weight is composed of fat. BMI does not measure body fat directly. Rather, it is an alternative to procedures that directly measure body fat, which can be difficult and expensive. BMI can help identify people who may be at higher risk for certain medical problems. What are BMI measurements used for? BMI is used as a screening tool to identify possible weight problems. It helps determine whether a person is obese, overweight, a healthy weight, or underweight. BMI is useful for: Identifying a weight problem that may be related to a medical condition or may increase the risk for medical problems. Promoting changes, such as changes in diet and exercise, to help reach a healthy weight. BMI screening can be repeated to see if these changes are working. How is BMI calculated? BMI involves measuring your weight in relation to your height. Both height and weight are measured, and the BMI is calculated from those numbers. This can be done either in [place] or metric measurements. Note that charts and online BMI calculators are available to help you find your BMI quickly and easily without having to do these calculations yourself. To calculate your BMI in [place] measurements: 1.Measure your weight in pounds (lb). 2.Multiply the number of pounds by 703. For example, for a person who weighs 180 lb, multiply that number by 703, which equals 126,540. 3.Measure your height in inches. Then multiply that number by itself to get a measurement called inches squared. For example, for a person who is 70 inches tall, the inches squared measurement is 70 inches x 70 inches, which equals 4,900 inches squared. 4.Divide the total from step 2 (number of lb x 703) by the total from step 3 (inches squared): 126,540 4,900 = 25.8. This is your BMI. To calculate your BMI in metric measurements: 1.Measure your weight in kilograms (kg). 2.Measure your height in meters (m). Then multiply that number by itself to get a measurement called meters squared. For example, for a person who is 1.75 m tall, the meters squared measurement is 1.75 m x 1.75 m, which is equal to 3.1 meters squared. 3.Divide the number of kilograms (your weight) by the meters squared number. In this example: 70 3.1 = 22.6. This is your BMI. What do the results mean? BMI charts are used to identify whether you are underweight, normal weight, overweight, or obese. The following guidelines will be used: Underweight: BMI less than 18.5. Normal weight: BMI between 18.5 and 24.9. Overweight: BMI between 25 and 29.9. Obese: BMI of 30 or above. Keep these notes in mind: Weight includes both fat and muscle, so someone with a muscular build, such as an athlete, may have a BMI that is higher than 24.9. In cases like these, BMI is not an accurate measure of body fat. To determine if excess body fat is the cause of a BMI of 25 or higher, further assessments may need to be done by a health care provider. BMI is usually interpreted in the same way for men and women. Where to find more information For more information about BMI, including tools to quickly calculate your BMI, go to these websites: Centers for Disease Control and Prevention: www.cdc.gov [place] Heart Association: www.heart.org National Heart, Lung, and Blood [place]: www.nhlbi.nih.gov Summary Body mass index (BMI) is a number that is calculated from a person's weight and height. BMI may help estimate how much of a person's weight is composed of fat. BMI can help identify those who may be at higher risk for certain medical problems. BMI can be measured using [place] measurements or metric measurements. BMI charts are used to identify whether you are underweight, normal weight, overweight, or obese. This information is not intended to replace advice given to you by your health care provider. Make sure you discuss any questions you have with your health care provider. Document Revised: 03/31/2020 Document Reviewed: 02/06/2020 [employer] Patient Education 2022 [employer]. 04/23/2023 16:46:19 Steps to Quit Smoking, Dncd-jx-Zkxo Steps to Quit Smoking Smoking tobacco is the leading cause of preventable . It can affect almost every organ in the body. Smoking puts you and people around you at risk for many serious, long-lasting (chronic) diseases. Quitting smoking can be hard, but it is one of the best things that you can do for your health. It is never too late to quit. Do not give up if you cannot quit the first time. Some people need to try many times to quit. Do your best to stick to your quit plan, and talk with your doctor if you have any questions or concerns. How do I get ready to quit? Pick a date to quit. Set a date within the next 2 weeks to give you time to prepare. Write down the reasons why you are quitting. Keep this list in places where you will see it often. Tell your family, friends, and co-workers that you are quitting. Their support is important. Talk with your doctor about the choices that may help you quit. Find out if your health insurance will pay for these treatments. Know the people, places, things, and activities that make you want to smoke (triggers). Avoid them. What first steps can I take to quit smoking? Throw away all cigarettes at home, at work, and in your car. Throw away the things that you use when you smoke, such as ashtrays and lighters. Clean your car. Empty the ashtray. Clean your home, including curtains and carpets. What can I do to help me quit smoking? Talk with your doctor about taking medicines and seeing a counselor. You are more likely to succeed when you do both. If you are or : Talk with your doctor about counseling or other ways to quit smoking. Do not take medicine to help you quit smoking unless your doctor tells you to. Quit right away Quit smoking completely, instead of slowly cutting back on how much you smoke over a period of time. Stopping smoking right away may be more successful than slowly quitting. Go to counseling. In-person is best if this is an option. You are more likely to quit if you go to counseling sessions regularly. Take medicine You may take medicines to help you quit. Some medicines need a prescription, and some you can buy ctlv-rlp-anbvoad. Some medicines may contain a drug called nicotine to replace the nicotine in cigarettes. Medicines may: Help you stop having the desire to smoke (cravings). Help to stop the problems that come when you stop smoking (withdrawal symptoms). Your doctor may ask you to use: Nicotine patches, gum, or lozenges. Nicotine inhalers or sprays. Non-nicotine medicine that you take by mouth. Find resources Find resources and other ways to help you quit smoking and remain smoke-free after you quit. They include: Online chats with a counselor. Phone quitlines. Printed self-help materials. Support groups or group counseling. Text messaging programs. Mobile phone apps. Use apps on your mobile phone or tablet that can help you stick to your quit plan. Examples of free services include Quit Guide from the CDC and smokefree.gov What can I do to make it easier to quit? Talk to your family and friends. Ask them to support and encourage you. Call a phone quitline, such as 1-489-LAUQ-NOW, reach out to support groups, or work with a counselor. Ask people who smoke to not smoke around you. Avoid places that make you want to smoke, such as: ?Bars. ?Parties. ?Smoke-break areas at work. Spend time with people who do not smoke. Lower the stress in your life. Stress can make you want to smoke. Try these things to lower stress: ?Getting regular exercise. ?Doing deep-breathing exercises. ?Doing yoga. ?Meditating. What benefits will I see if I quit smoking? Over time, you may have: A better sense of smell and taste. Less coughing and sore throat. A slower heart rate. Lower blood pressure. Clearer skin. Better breathing. Fewer sick days. Summary Quitting smoking can be hard, but it is one of the best things that you can do for your health. Do not give up if you cannot quit the first time. Some people need to try many times to quit. When you decide to quit smoking, make a plan to help you succeed. Quit smoking right away, not slowly over a period of time. When you start quitting, get help and support to keep you smoke-free. This information is not intended to replace advice given to you by your health care provider. Make sure you discuss any questions you have with your health care provider. Document Revised: 06/30/2022 Document Reviewed: 06/30/2022 [employer] Patient Education 2022 [employer]. 04/23/2023 16:46:14 Paresthesia, Czfv-bg-Jbwv Paresthesia Paresthesia is a burning or prickling feeling. This feeling can happen in any part of the body. It often happens in the hands, arms, legs, or feet. Usually, it is not painful. In most cases, the feeling goes away in a short time and is not a sign of a serious problem. If you have paresthesia that lasts a long time, you need to see your doctor. Follow these instructions at home: Nutrition Eat a healthy diet. This includes: Eating foods that are high in fiber. These include beans, whole grains, and fresh fruits and vegetables. Limiting foods that are high in fat and sugar. These include fried or sweet foods. Alcohol use Do not drink alcohol if: ?Your doctor tells you not to drink. ?You are , may be , or are planning to become . If you drink alcohol: ?Limit how much you have to: ?0 1 drink a day for women. ?0 2 drinks a day for men. ?Know how much alcohol is in your drink. In the [place] one drink equals one 12 oz bottle of beer (355 mL), one 5 oz glass of wine (148 mL), or one 1 oz glass of hard liquor (44 mL). General instructions Take dvyp-hxd-uzfggpf and prescription medicines only as told by your doctor. Do not smoke or use any products that contain nicotine or tobacco. If you need help quitting, ask your doctor. If you have diabetes, work with your doctor to make sure your blood sugar stays in a healthy range. If your feet feel numb: ?Check for redness, warmth, and swelling every day. ?Wear padded socks and comfortable shoes. These help protect your feet. Keep all follow-up visits. Contact a doctor if: You have paresthesia that gets worse or does not go away. You lose feeling (have numbness) after an injury. Your burning or prickling feeling gets worse when you walk. You have pain or cramps. You feel dizzy or you faint. You have a rash. Get help right away if: You feel weak or have new weakness in an arm or leg. You have trouble walking or moving. You have problems speaking, understanding, or seeing. You feel confused. You cannot control when you pee (urinate) or poop (have a bowel movement). These symptoms may be an emergency. Get help right away. Call 911. Do not wait to see if the symptoms will go away. Do not drive yourself to the hospital. Summary Paresthesia is a burning or prickling feeling. It often happens in the hands, arms, legs, or feet. In most cases, the feeling goes away in a short time and is not a sign of a serious problem. If you have paresthesia that lasts a long time, you need to be seen by your doctor. This information is not intended to replace advice given to you by your health care provider. Make sure you discuss any questions you have with your health care provider. Document Revised: 03/20/2022 Document Reviewed: 03/20/2022 [employer] Patient Education 2022 [employer]. 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) Otitis media (H66.90: Otitis media, unspecified, unspecified ear) Orders: amoxicillin, 875 mg = 1 tab(s), Oral, BID, X 10 day(s), # 20 tab(s), Refills(s) 0, Pharmacy: [facility] #[id number], 168, cm, 02/18/23 1:01:00 EDT, Height/Length Dosing, 130, kg, 02/18/23 1:01:00 EDT, Weight Dosing amoxicillin, 875 mg = 1 tab(s), Tab, Oral, Once, Stop date 02/18/23 1:08:00 EDT, STAT, Start date 02/18/23 1:08:00 EDT, 02/18/23 1:08:00 EDT ocular lubricant, 1 isatu, Ointment, OPTH, Once, Stop date 02/18/23 1:15:00 EDT, STAT, Start date 02/18/23 1:15:00 EDT ocular lubricant, See Instructions, 3.5 gm, Refill(s) 0, Eye left, BID, [id number], 168, cm, 02/18/23 1:01:00 EDT, Height/Length Dosing, 130, kg, 02/18/23 1:01:00 EDT, Weight Dosing predniSONE, 50 mg = 1 tab(s), Oral, Daily, X 5 day(s), # 5 tab(s), Refills(s) 0, Pharmacy: [facility] #[id number], 168, cm, 02/18/23 1:01:00 EDT, Height/Length Dosing, 130, kg, 02/18/23 1:01:00 EDT, Weight Dosing predniSONE, 60 mg = 3 tab(s), Tab, Oral, Once, Stop date 02/18/23 1:08:00 EDT, STAT, Start date 02/18/23 1:08:00 EDT, 02/18/23 1:08:00 EDT [facility] Hospital Discharge instructions 02-18-2023 Note Date & Type Note Facility 02-18-2023 Hospital Discharg e instructions Patient Education 02/18/2023 01:59:43 Otitis Media, Adult, Zczw-rx-Trzx Otitis Media, Adult Otitis media is a condition in which the middle ear is red and swollen (inflamed) and full of fluid. The middle ear is the part of the ear that contains bones for hearing as well as air that helps send sounds to the brain. The condition usually goes away on its own. What are the causes? This condition is caused by a blockage in the eustachian tube. This tube connects the middle ear to the back of the nose. It normally allows air into the middle ear. The blockage is caused by fluid or swelling. Problems that can cause blockage include: A cold or infection that affects the nose, mouth, or throat. Allergies. An irritant, such as tobacco smoke. Adenoids that have become large. The adenoids are soft tissue located in the back of the throat, behind the nose and the roof of the mouth. Growth or swelling in the upper part of the throat, just behind the nose (nasopharynx). Damage to the ear caused by a change in pressure. This is called barotrauma. What increases the risk? You are more likely to develop this condition if you: Smoke or are exposed to tobacco smoke. Have an opening in the roof of your mouth (cleft palate). Have acid reflux. Have problems in your body's defense system (immune system). What are the signs or symptoms? Symptoms of this condition include: Ear pain. Fever. Problems with hearing. Being tired. Fluid leaking from the ear. Ringing in the ear. How is this treated? This condition can go away on its own within 3 5 days. But if the condition is caused by germs (bacteria) and does not go away on its own, or if it keeps coming back, your doctor may: Give you antibiotic medicines. Give you medicines for pain. Follow these instructions at home: Take ytgq-eki-zuqcldz and prescription medicines only as told by your doctor. If you were prescribed an antibiotic medicine, take it as told by your doctor. Do not stop taking it even if you start to feel better. Keep all follow-up visits. Contact a doctor if: You have bleeding from your nose. There is a lump on your neck. You are not feeling better in 5 days. You feel worse instead of better. Get help right away if: You have pain that is not helped with medicine. You have swelling, redness, or pain around your ear. You get a stiff neck. You cannot move part of your face (paralysis). You notice that the bone behind your ear hurts when you touch it. You get a very bad headache. Summary Otitis media means that the middle ear is red, swollen, and full of fluid. This condition usually goes away on its own. If the problem does not go away, treatment may be needed. You may be given medicines to treat the infection or to treat your pain. If you were prescribed an antibiotic medicine, take it as told by your doctor. Do not stop taking it even if you start to feel better. Keep all follow-up visits. This information is not intended to replace advice given to you by your health care provider. Make sure you discuss any questions you have with your health care provider. Document Revised: 10/17/2021 Document Reviewed: 10/17/2021 [employer] Patient Education 2022 [employer]. 02/18/2023 01:59:43 Siddiqui's Palsy, Adult Siddiqui's Palsy, Adult Siddiqui's palsy is a short-term inability to move muscles in a part of the face. The inability to move, also called paralysis, results from inflammation or compression of the seventh cranial nerve. This nerve travels along the skull and under the ear to the side of the face. This nerve is responsible for facial movements that include blinking, closing the eyes, smiling, and frowning. What are the causes? The exact cause of this condition is not known. It may be caused by an infection from a virus, such as the chickenpox (herpes zoster), Milena Ruiz, or mumps virus. What increases the risk? You are more likely to develop this condition if: You are . You have diabetes. You have had a recent infection in your nose, throat, or airways. You have a weakened body defense system (immune system). You have had a facial injury, such as a fracture. You have a family history of Siddiqui's palsy. What are the signs or symptoms? Symptoms of this condition include: Weakness on one side of the face. Drooping eyelid and corner of the mouth. Excessive tearing in one eye. Difficulty closing the eyelid. Dry eye. Drooling. Dry mouth. Changes in taste. Change in facial appearance. Pain behind one ear. Ringing in one or both ears. Sensitivity to sound in one ear. Facial twitching. Headache. Impaired speech. Dizziness. Difficulty eating or drinking. Most of the time, only one side of the face is affected. In rare cases, Siddiqui's palsy may affect the whole face. How is this diagnosed? This condition is diagnosed based on: Your symptoms. Your medical history. A physical exam. You may also have to see health care providers who specialize in disorders of the nerves (neurologist) or diseases and conditions of the eye (childhood teacher). You may have tests, such as: A test to check for nerve damage (electromyogram). Imaging studies, such as a CT scan or an MRI. Blood tests. How is this treated? This condition affects every person differently. Sometimes symptoms go away without treatment within a couple weeks. If treatment is needed, it varies from person to person. The goal of treatment is to reduce inflammation and protect the eye from damage. Treatment for Siddiqui's palsy may include: Medicines, such as: ?Steroids to reduce swelling and inflammation. ?Antiviral medicines. ?Pain relievers, including aspirin, acetaminophen, or ibuprofen. Eye drops or ointment to keep your eye moist. Eye protection, if you cannot close your eye. Exercises or massage to regain muscle strength and function (physical therapy). Follow these instructions at home: Take egly-atc-yzjjyro and prescription medicines only as told by your health care provider. If your eye is affected: ?Keep your eye moist with eye drops or ointment as told by your health care provider. ?Follow instructions for eye care and protection as told by your health care provider. Do any physical therapy exercises as told by your health care provider. Keep all follow-up visits. This is important. Contact a health care provider if: You have a fever or chills. Your symptoms do not get better within 2 3 weeks, or your symptoms get worse. Your eye is red, irritated, or painful. You have new symptoms. Get help right away if: You have weakness or numbness in a part of your body other than your face. You have trouble swallowing. You develop neck pain or stiffness. You develop dizziness or shortness of breath. Summary Siddiqui's palsy is a short-term inability to move muscles in a part of the face. The inability to move results from inflammation or compression of the facial nerve. This condition affects every person differently. Sometimes symptoms go away without treatment within a couple weeks. If treatment is needed, it varies from person to person. The goal of treatment is to reduce inflammation and protect the eye from damage. Contact your health care provider if your symptoms do not get better within 2 3 weeks, or your symptoms get worse. This information is not intended to replace advice given to you by your health care provider. Make sure you discuss any questions you have with your health care provider. Document Revised: 04/07/2021 Document Reviewed: 04/07/2021 [employer] Patient Education 2022 [employer]. Follow Up Care 02/18/2023 00:50:33 With:Morenita Comer Address: [address] [place] [address], [address] [place] [id number] Business (1) When:02/21/2023 Comments:Take the antibiotics and the steroids as prescribed to completed the course. Use the eye ointment 2-3 times per day as needed. Please follow-up with your primary care doctor next 2 to 3 days. Please return to the ED for any new or worsening symptoms. [facility] Evaluation note Note Date & Type Note Facility Evaluation note [facility] Hospital course Narrative Note Date & Type Note Facility Hospital course Narrative No data available for this section [facility] Hospital Discharge instructions Note Date & Type Note Facility Hospital Discharge instructions No data available for this section [facility] Progress note Note Date & Type Note Facility Progress note No data available for this section [facility] Summary Purpose Family History No Family History Records Found Advance Directives No Advanced Directives Records Found Advance Directive Response Recorded Date/ Time Advance Directives No October 23 4:03pm Chief Complaint and Reason for Visit Chief Complaint g50.0 g24.5 Additional Source Comments Patient Care team informatio n (unrecognized section and content) Team Status: Active Member Role Status Dates Morenita Comer Primary Care Provider Active Team Status: Inactive Member Role Status Dates Morenita Comer Primary Care Provider Active Star t: February 21, 2024 End: February 21, 2024 Loc Helm DO Attending Provider Active Sta rt: February 21, 2024 End: February 21, 2024 INFORMATION SOURCE (unrecogn ized section and content) DATE CREATED AUTHOR [facility]20[facility]2023 [facility] DATE CREATED AUTHOR AUTHOR'S ORGANIZ ATION 02/28/2024 [facility] [place] DATE CREATED AUTHOR AUTHOR'S ORGANIZ ATION 03/02/2024 [facility] Goals (unrecognized section and content) Goals may be documented in a n alternate section FOR RECORDS PERTAINING TO PATIENTS WHO ARE OR HAVE BEEN ENROLLED IN A CHEMICAL DEPENDENCY/SUBSTANCEABUSE PROGRAM, SOME INFORMATION MAY BE OMITTED. This clinical summary was aggregated from multiple sources. Caution should be exercised in using it in the provision of clinical care. This summary normalizes information from multiple sources, and as a consequence, information in this document may materially change the coding, format and clinical context of patient data. In addition, data may be omitted in some cases. CLINICAL DECISIONS SHOULD BE BASED ON THE PRIMARY CLINICAL RECORDS. [employer] provides no warranty or guarantee of the accuracy or completeness of information in this document.
[2024-03-20 17:13] LABS: Glucose CSF 52 mg/dL (40-70); Glucose CSF 54 mg/dL (40-70); Total Protein CSF 33 mg/dL (15-45); Total Protein CSF 40 mg/dL (15-45)
[2024-03-20 17:51] LABS: CSF Clarity CLEAR (CLEAR); CSF Tube # 1
[2024-03-20 17:52] LABS: CSF Color COLORLESS (COLORLESS); CSF Total Volume 25 mL; Red Blood Cell CSF 691 cubic mm (0-0); Red Blood Cell CSF Side 1 615; Red Blood Cell CSF Side 2 630; White Blood Cell CSF 0 cubic mm (0-5); White Blood Cell CSF Side 1 0; White Blood Cell CSF Side 2 0
[2024-03-20 18:07] LABS: CSF Clarity CLEAR (CLEAR); CSF Color COLORLESS (COLORLESS); CSF Total Volume 25 mL; CSF Tube # 2; Red Blood Cell CSF 3 cubic mm (0-0); Red Blood Cell CSF Side 1 3; Red Blood Cell CSF Side 2 3; White Blood Cell CSF 0 cubic mm (0-5); White Blood Cell CSF Side 1 0; White Blood Cell CSF Side 2 0
== END 2024-03-20 16:11 | disposition home or self-care (01) ==
LOC: LAB 16:10
PROVIDERS: Visit Provider Psychiatry & Neurology Neurology
DX: G93.2 Benign intracranial hypertension (principal)
CPT/HCPCS: 36415; 82164; 82945; 84157; 86617; 87070; 87205; 89050

== ENCOUNTER 2025-05-18 20:14 | Outpatient (REF) | payer OTHER, SELFPAY ==
--- OUTSIDE RECORDS SUMMARY | 2024-01-08 06:00 | XMS_ITS ---
Author Organization [facility] Servic es Address [address] [place] [address] Care Team Providers Care Bagging Machine Operator Name Role Phone Levi Kessler Primary Care Provider [phone] Ayaan Douglass [phone] REASON FOR VISIT struggling with grief Encounters Encounter Location Date Provider Diagnosis [facility] [address] [place] [address] 2023 Ayaan Dangelo Plan Of Treatment No Information Progress Notes * LENORA PRADO ADOB:1995 (29 yo F)Acc No.[id number]:01/08/2024 Consult - Patient Patient: Alicia RUANO LENORA Real :?MAINE Arroyo-SDOB:1995???Age:28 Y ???Sex:FemaleDate:4Phone:[phone]:[address] [place], [place] [id number]:Levi Kessler Subjective: * Chief Complaints: * S truggling with grief Care Plan Details* * Electronic signature of CHARLIE Arroyo, [id number] on 05/18/2025 at 11:24 AM EDTSign off status: Pending * Provider: CHARLIE Bae Date: 0 01/08/2024 Generated for Printing/Faxing/eTransmitting on:?05/18/2025 11:24 AM EDT
--- OUTSIDE RECORDS SUMMARY | 2024-01-21 07:00 | XMS_ITS ---
Author Organization [facility] Serv[facility] Address [address] [place] [address] Care Team Providers Care Reclamation Worker Name Role Phone Levi Kessler Primary Care Provider [phone] Ayaan Douglass [phone] REASON FOR VISIT STRUGGLING WITH GRIEF Encounters Encounter Location Date Provider Diagnosis [facility] [address] [place] [address] 2023 Ayaan Dangelo Plan Of Treatment No Information Progress Notes * LENORA PRADO ADOB:1995 (29 yo F)Acc No.[id number]:01/21/2024 Consult - Patient Patient: Alicia RUANO LENORA Real :?MAINE Arroyo-SDOB:1995???Age:28 Y ???Sex:FemaleDate:4Phone:[phone]:[address] [place], [place] [id number]:Levi Kessler Subjective: * Chief Complaints: * S TRUGGLING WITH GRIEF Billing Information: * Procedure Codes: Care Plan Details* * Electronic signature of CHARLIE Arroyo, [id number] on 05/18/2025 at 11:23 AM EDTSign off status: Pending * Provider: CHARLIE Bae Date: 0 01/21/2024 Generated for Printing/Faxing/eTransmitting on:?05/18/2025 11:23 AM EDT
--- OUTSIDE RECORDS SUMMARY | 2024-06-16 04:00 | XMS_ITS ---
Author Organization [facility] Address [address] [place] [address] Care Team Providers Care Dealer Accounts Investigator Name Role Phone Levi Kessler Primary Care Provider [phone] Brittany Ramirez [phone] REASON FOR VISIT PROPHY Encounters Encounter Location Date Provider Diagnosis [facility] [address] [place] [address] 06/16/2024 Brittany Ramirez Plan Of Treatment No Information Progress Notes * LENORA PRADO ADOB:1995 (29 yo F)Acc No.[id number]:06/16/2024 Patient:?LENORA PRADO :?Brittany ChristyB:1995???Age:28 Y???Sex: FemaleDate:06/16/2024hone:[phone]:[address] [place], [place] [phone]:Levi Kessler Subjective: * Chief Complaints: * P ROPHY * Electronic signature of Brittany Ramirez on 05/18/2025 at 11:23 AM EDTSign off status: Pending * Provider: Jalyeen Tate Date: 08/16/2023 Generated for Printing/Faxing/eTransmitting on:?05/18/2025 11:23 AM EDT
--- OUTSIDE RECORDS SUMMARY | 2024-07-09 04:35 | XMS_ITS ---
Author Organization [facility] Address [address] [place] [address] Care Team Providers Care Dry Plasterer Helper Name Role Phone Levi Kessler Primary Care Provider [phone] Dr. Ayaan Mares Unavailable [phone] REASON FOR VISIT CRACKED TOOTH Encounters Encounter Location Date Provider Diagnosis [facility] [address] [place] [address] 07/09/2024 Ayaan Mayfield Plan Of Treatment No Information Progress Notes * LENORA PRADO ADOB:1995 (29 yo F)Acc No.[id number]:07/09/2024 Patient:?LENORA PRADO :?Ayaan Mayfield DDSDOB:1995???Age:28 Y???Sex: FemaleDate:07/09/2024hone:[phone]:[address] [place], [place] [id number]:Levi Kessler Subjective: * Chief Complaints: * C RACKED TOOTH * Electronic signature of Dr. Ayaan Mayfield , DMD, [id number] on 05/18/2025 at 11:24 AM EDTSign off status: Pending * Provider: Jayleen Mayfield DDS Date: 09/09/2023 Generated for Printing/Faxing/eTransmitting on:?05/18/2025 11:24 AM EDT
--- OUTSIDE RECORDS SUMMARY | 2024-08-01 07:00 | XMS_ITS ---
Author Organization [facility] Address [address] [place] [address] Care Team Providers Care Cable Mock Up Assembler Name Role Phone Levi Kessler Primary Care Provider [phone] Ange Berg [phone] REASON FOR VISIT apro Encounters Encounter Location Date Provider Diagnosis [place] [address] [place] [address] 08/01/2024 Ange Meadows Plan Of Treatment No Information Progress Notes * LENORA PRADO ADOB:1995 (29 yo F)Acc No.[id number]:08/01/2024 Patient:?LENORA PRADO :?Ange RodriguezDOB:1995???Age:28 Y???Sex: FemaleDate:08/01/2024Phone:[phone]:[address] [place], [place] [phone]:Levi Kessler Subjective: * Chief Complaints: * A pro * Electronic signature of Ange Meadows on 05/18/2025 at 11:23 AM EDTSign off status: Pending * Provider: Kayla Rodriguez Date: 0 08/01/2024 Generated for Printing/Faxing/eTransmitting on:?05/18/2025 11:23 AM EDT
--- OUTSIDE RECORDS SUMMARY | 2025-05-04 14:10 | XMS_ITS | Encounter Summary ---
Author Organization [facility] Address [address] [place] [address] Care Team Providers Care Automotive Porter Name Role Phone ComerAmbar ACADEMIC AFFAIRS MANAGER Unavailable Rosario Kerr DO Primary Care Provider [phone] Leland Tamez Portillo DO Unavailable [phone] Reason for Visit * ReasonCommentsDiscuss Fertility Encounter Details DateTypeDepartmentCare Team (Latest Contact Info)Pyfujkyrcgj02/13/2025 2:10 PM EDTOffice Visit [facility] [address] [address] Benedicto Sol DO [address] [place] [address] General counseling and advice on contraceptive management; Encounter for long-term (current) use of medications Social History Tobacco UseTypesPacks/DayYears UsedDateSmoking Tobacco: FormerCigarettes Smokeless Tobacco: NeverAlcohol UseStandard Drinks/WeekCommentsNever0 (1 standard drink = 0.6 oz pure alcohol)caffeine:once a dayCommentsNoSex and Gender InformationValueDate RecordedSex Assigned at BirthNot on fileLegal NzaYfqngb93/15/2023 7:09 PM EDTGender IdentityNot on fileSexual OrientationNot on filedocumented as of this encounter Last Filed Vital Signs Vital SignReadingTime TakenCommentsBlood Ijxpdgsj544/8610 2:37 PM EDT Pulse--Temperature--Respiratory Rate--Oxygen Saturation--Inhaled Oxygen Concentration--Vfvlvs619 kg (269 lb 4 oz)05/04/2025 2:37 PM EDTHeight--Body Mass Index43.4605/13/2024 9:03 AM EDTdocumented in this encounter Progress Notes * Vanessa Bernard LPN - 05/04/2025 2:10 PM EDT Reason for Appointment: Patient ID: Tatianna Pickard is a 29 y.o. female who presents for Discuss Fertility Patient presents today for Consult appointment. 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 Pseudotumor cerebri 01/28/2024 PCOS (polycystic ovarian syndrome) 01/28/2024 Anxiety 02/05/2024 Current smoker 02/05/2024 Obesity 02/05/2024 Encounter to discuss test results 05/20/2024 Resolved Ambulatory Problems Diagnosis Date Noted No Resolved Ambulatory Problems Past Medical History: Diagnosis Date Siddiqui's palsy HISTORY PAST MEDICAL HISTORY SOCIAL HISTORY Medical History[2] Social History Tobacco Use Smoking status: Former Types: Cigarettes Smokeless tobacco: Never Substance Use Topics Alcohol use: Never Comment: caffeine:once a day Drug use: Not Currently FAMILY HISTORY Family History[3] SURGICAL HISTORY Surgical History[4] REVIEW OF SYSTEMS Review of Systems: Review of Systems Constitutional: Negative. HENT: Negative. Eyes: Negative. Respiratory: Negative. Cardiovascular: Negative. Gastrointestinal: Negative. Genitourinary: Negative. Musculoskeletal: Negative. Skin: Negative. Neurological: Negative. All other systems reviewed and are negative. Hematological: Negative. Endocrine: Negative. Allergic/Immunologic: Negative. OBJECTIVE Objective: Physical Exam Constitutional: Appearance: Normal appearance. She is well-developed. Cardiovascular: Rate and Rhythm: Normal rate and regular rhythm. Pulmonary: Effort: Pulmonary effort is normal. Breath sounds: Normal breath sounds. Abdominal: General: Bowel sounds are normal. There is no distension. Palpations: Abdomen is soft. Tenderness: There is no abdominal tenderness. There is no guarding or rebound. Musculoskeletal: General: No swelling. Normal range of motion. Right lower leg: No edema. Left lower leg: No edema. Neurological: Mental Status: She is alert and oriented to person, place, and time. Skin: General: Skin is warm and dry. Psychiatric: Mood and Affect: Mood normal. Behavior: Behavior normal. Vitals and nursing note reviewed. Exam conducted with a material handling equipment stevedore present. Vitals: Estimated body mass index is 43.46 kg/m?? as calculated from the following: Height as of 05/13/24: 5' 6 . Weight as of this encounter: 269 lb 4 oz. BP: 140/86 Patient's last menstrual period was 03/03/2025 (approximate). ASSESSMENT & PLAN Patient presents to office today to discuss fertility. Patient has lost 31 pounds on GLP-1 currently. Patient would like to discuss what ideal weight would be and discussed that 240 would be a healthy weight for and delivery. Patient presents today to discuss fertility. Patient was given a standing lab order and ultrasound to have obtained. Patient was instructed to call the office oncemenstrual cycle begins so femara can be called into patients pharmacy. Patient has been instructed to take Femara on days 3-7 of cycle. On day 21 of cycle patient is to have progesterone labs drawn. Patient was advised to have intercourse on days 12, 14, 16, 18, and 20 of cycle. We will do three rounds of Femara and if patient has not conceived by then, we will perform HSG. Patient has voiced understanding and will call our office for any further questions/concerns. If cycles are not back at time of fertility planning then Hung is able to be called in. Follow Up: Follow up in office after 4 months of fertility medications. Patient to call office when she gets to 240lbs she is to reach out for fertility medication and annual routine appointment. Documented by Vanessa Bernard LPN on behalf of: Benedicto Sol DO [1] No Known Allergies [2] Past Medical History: Diagnosis Date Siddiqui's palsy [3] Family History Family history unknown: Yes [4] Past Surgical History: Procedure Laterality Date TONSILLECTOMY documented in this encounter Plan of Treatment NameTypePriorityAssociated DiagnosesOrder ScheduleComprehensive metabolic panel LabRoutine Encounter for long-term (current) use of medications Expected: 05/04/2025 (Approximate), Expires: 05/04/2026documented as of this encounter Visit Diagnoses Diagnosis General counseling and advice on contraceptive management Other general counseling and advice for contraceptive management Encounter for long-term (current) use of medications Encounter for long-term (current) use of other medications documented in this encounter Care Teams Team MemberRelationshipSpecialtyStart DateEnd Date Rosario Kerr DO [address] [place] [address] PCP - GeneralFamily Medicine01/21/24 Ambar Comer NP [address] [place] [address] Referring PhysicianFamily Medicine11/29/23 Leland Tamez DO [address] [place] [address] Otolaryngology02/26/24documented as of this encounter
--- OUTSIDE RECORDS SUMMARY | 2025-05-18 11:00 | XMS_ITS | Encounter Summary ---
Author Organization [facility] Address [address] [facility] [place] [address] Care Team Providers Care Insurance Adjuster Name Role Phone Souleymane Ambar DIRECT MAIL MANAGER Unavailable Rosario Kerr DO Primary Care Provider [phone] Leland Tamez Portillo DO Unavailable [phone] Reason for Visit * ReasonCommentsWell Women Visit Encounter Details DateTypeDepartmentCare Team (Latest Contact Info)Xwlpvjcmmmf59/27/2025 11:00 AM EDTProcedure Visit [facility] [address] [place] [place] [id number] oRsario Varela PA [address] [facility] [place] [address] Well woman exam with routine gynecological exam Social History Tobacco UseTypesPacks/DayYears UsedDateSmoking Tobacco: FormerCigarettes Smokeless Tobacco: NeverAlcohol UseStandard Drinks/WeekCommentsNever0 (1 standard drink = 0.6 oz pure alcohol)caffeine:once a dayCommentsNoSex and Gender InformationValueDate RecordedSex Assigned at BirthNot on fileLegal FfcUzoxfw57/15/2023 7:09 PM EDTGender IdentityNot on fileSexual OrientationNot on filedocumented as of this encounter Last Filed Vital Signs Vital SignReadingTime TakenCommentsBlood Mfzjparr329/8810 11:30 AM EDT Pulse--Temperature--Respiratory Rate--Oxygen Saturation--Inhaled Oxygen Concentration--Qikwgp334 kg (266 lb 12.8 oz)05/18/2025 11:30 AM EDTHeight--Body Mass Index43.0605/13/2024 9:03 AM EDTdocumented in this encounter Progress Notes * MAURICE Brown - 05/18/2025 11:00 AM EDT Reason for Appointment: Patient ID: Tatianna Pickard is a 29 y.o. female who presents for Well Women Visit Patient presents today for Annual Exam. MEDICATIONS Current Outpatient Medications Medication Instructions Semaglutide-Weight Management 1.8 mg, Weekly ALLERGIES No Known Allergies PROBLEMS Active Ambulatory Problems Diagnosis Date Noted [...] palsy HISTORY PAST MEDICAL HISTORY SOCIAL HISTORY Past Medical History: Diagnosis Date Siddiqui's palsy Social History Tobacco Use Smoking status: Former Types: Cigarettes Smokeless tobacco: Never Substance Use Topics Alcohol use: Never Comment: caffeine:once a day Drug use: Not Currently FAMILY HISTORY Family History Family history unknown: Yes SURGICAL HISTORY Past Surgical History: Procedure Laterality Date TONSILLECTOMY REVIEW OF SYSTEMS Review of Systems: Review of Systems Constitutional: Negative. HENT: Negative. Eyes: Negative. Respiratory: Negative. Cardiovascular: Negative. Gastrointestinal: Negative. Genitourinary: Negative. Musculoskeletal: Negative. Skin: Negative. Neurological: Negative. All other systems reviewed and are negative. Hematological: Negative. Endocrine: Negative. Allergic/Immunologic: Negative. OBJECTIVE Objective: Physical Exam Constitutional: Appearance: Normal appearance. She is well-developed. Genitourinary: Vulva normal. Cardiovascular: Rate and Rhythm: Normal rate and [...] nursing note reviewed. Exam conducted with a design analyst present. Vitals: Estimated body mass index is 43.06 kg/m?? as calculated from the following: Height as of 05/13/24: 5' 6 . Weight as of this encounter: 266 lb 12.8 oz. BP: 140/88 Patient's last menstrual period was 03/03/2025 (approximate). ASSESSMENT & PLAN ICD-10-CM 1. Well woman exam with routine gynecological exam Z01.419 Pap Smear No orders of the defined types were placed in this encounter. Annual Wellness Exam: Patient presents today for routine annual exam. Patient states she has no current complaints. Patients vitals were reviewed and within normal limits. Growth and development is noted to be appropriate for age. Menstrual history is noted to be irregular with no concerns reported. No mental health concerns was expressed. Pap Smear: Speculum was inserted into the vagina and pap was obtained without difficulty. No HPV testing was performed per age guideline. Patient was advised that pap results could take anywhere from 7 to 10 days to receive and our office will reach out to the patient with those once we have them. Patient canalso view results via MyChart. I reinforced importance of condom use for STI prevention. Patient declined cultures to be performed with today's visit. Breast Exam: Upon examination, clinical breast exam was noted to be normal. Patient was counseled on breast self-awareness, including the importance of knowing what is normal for her own breasts and promptly reporting any changes such as new lumps, skin dimpling, nipple discharge, or pain. Screening mammogram recommended annually beginning at age 40 or earlier if risk factors are present. Discussed signs and symptoms of breast cancer and when to seek medical attention. Answered all patient questions. Contraceptive Counseling (if applicable): Patient is currently using no control at this time as a form of contraceptive. Patient does not desire control at this time. Follow Up: Patient is to return to our office in one year for annual exam unless needed otherwise. Documented by MAURICE Brown on behalf of: MAURICE Brown documented in this encounter Plan of Treatment NameTypePriorityAssociated DiagnosesOrder SchedulePap SmearPathology and CytologyRoutine Well woman exam with routine gynecological exam Ordered: 05/18/2025documented as of this encounter Visit Diagnoses Diagnosis Well woman exam with routine gynecological exam Routine gynecological examination documented in this encounter Care Teams Team MemberRelationshipSpecialtyStart DateEnd Date Rosario Kerr DO [address] [place] [address] PCP - GeneralFamily Medicine01/21/24 Ambar Comer NP [address] [place] [address] Referring PhysicianFamily Medicine11/29/23 Leland Tamez DO [address] [place] [address] Otolaryngology02/26/24documented as of this encounter
--- OUTSIDE RECORDS SUMMARY | 2025-05-18 20:20 | XMS_ITS | Clinical Summary ---
Author Organization [facility] Address [address] [place] [address] Care Team Providers Care Office Technology Instructor Name Role Phone Ambar Comer NP Unavailable Rosario Kerr DO Primary Care Provider [phone] Leland Tamez DO Unavailable [phone] Allergies No known active allergies Medications MedicationSigDispense QuantityRefillsLast FilledStart DateEnd DateStatus Semaglutide-Weight Management 1.7 MG/0.75ML solution auto-injector Inject 1.8 mg under the skin 1 (one) time per weekActive sertraline (Zoloft) 50 MG tablet Take 50 mg by mouth Daily05/04/2025Discontinued metFORMIN XR (Glucophage-XR) 500 MG 24 hr tablet Indications:PCOS (polycystic ovarian syndrome),Pseudotumor cerebriTake 1 tablet (500 mg) by mouth in the evening. Take with meals Do not crush, chew, or split. 30 tablet /Discontinued carBAMazepine (TEGretol) 200 MG tablet Indications:IIH (idiopathic intracranial hypertension)Take 1 tablet (200 mg) by mouth in the morning and 1 tablet (200 mg) before bedtime. 60 tablet /Discontinued acetaZOLAMIDE (Diamox) 125 MG tablet Indications:IIH (idiopathic intracranial hypertension)2 in the am and 2 in late afternoon 160 tablet /Discontinued spironolactone (Aldactone) 100 MG tablet Indications:Female pattern alopeciaTake 1 tablet, by mouth, once daily, 30 days 30 tablet 1102/24/201035/13/2025Discontinued betamethasone dipropionate 0.05 % cream Indications:Other atopic dermatitisApply to affected areas, up to twice a day when flared, do not use one the face, groin, or underarms, 30 day supply 45 g 11009/15/Discontinued metFORMIN (Glucophage) 500 MG tablet Indications:Weight gain,PCOS (polycystic ovarian syndrome),Pseudotumor cerebri Take 2 tablets (1,000 mg) by mouth Daily 60 tablet 11002/02//Discontinued medroxyPROGESTERone (Provera) 10 MG tablet Indications:PCOS (polycystic ovarian syndrome)Take 1 tablet (10 mg) by mouth Daily for 10 days 10 tablet /Discontinued Active Problems ProblemNoted DateDiagnosed DateEncounter to discuss test hkbtorj4905/20/2024 Megpysl6802/05/2024urrent djhhsw8102/05/2024 Overview (02/05/2024): Added secondary to documentation in Social History. Uvlyzag2302/05/2024Trigeminal lpknrcatl10/08/2024Facial pain01/28/2024 Blepharospasm of left eye01/28/2024Sensory abvwvhyeqv48/08/2024seudotumor ytmxscp4101/28/2024COS (polycystic ovarian syndrome)01/28/2024 Encounters DateTypeDepartmentCare QrzlAptchiolscn68/27/2025 11:00 AM EDTPro[place] [address] Rosario Varela PA Well woman exam with routine gynecological exam05/18/2025amboo [place] [address] Rosario Varela PA 05/04/2025 2:10 [place] [address] Benedicto Sol DO General counseling and advice on contraceptive management; Encounter for long-term (current) use of /13/2025amboo flowsheet [facility] [address] [place] [address] Benedicto Sol DO 02/21/2025Refill [facility] [address] [place] [address] Benedicto Sol DO PCOS (polycystic ovarian syndrome)from Last 3 Months Social History Tobacco UseTypesPacks/DayYears UsedDateSmoking Tobacco: FormerCigarettes Smokeless Tobacco: Never Tobacco Cessation:Counseling Given: Not Answered Alcohol UseStandard Drinks/WeekCommentsNever0 (1 standard drink = 0.6 oz pure alcohol)caffeine:once a dayCommentsNoSex and Gender InformationValueDate RecordedSex Assigned at BirthNot on fileLegal SdeMrxkmv56/15/2023 7:09 PM EDT Gender IdentityNot on fileSexual OrientationNot on file Last Filed Vital Signs Vital SignReadingTime TakenCommentsBlood Ervfqlde253/8810 11:30 AM EDT Vquge944605/13/2024 9:03 AM EDTTemperature--Respiratory Ssrt733411/29/2023 10:18 AM EDTOxygen Nupyoyhxfs05%01/28/2024 8:21 AM EDTInhaled Oxygen Concentration-- Xvibdv959 kg (266 lb 12.8 oz)05/18/2025 11:30 AM RGPXpmprd343.6 cm (5' 6 ) 05/13/2024 9:03 AM EDTBody Mass Index43.0605/13/2024 9:03 AM EDT Plan of Treatment Not on file Insurance * Guarantor: Tatianna Pickard AAccount TypeRelation to PatientDate of BirthPhone Billing AddressPersonal/AckhmnHlkg85/24/1996 [address] [place] [address] Care Teams Team MemberRelationshipSpecialtyStart DateEnd Date Rosario Kerr DO [address] [place] [address] PCP - Generalmily Medicine01/21/24 Ambar Comer NP [address] [place] [address] Referring PhysicianFamily Medicine11/29/23 Leland Tamez DO [address] [place] [address] Otolaryngology02/26/24
--- OUTSIDE RECORDS SUMMARY | 2025-05-18 20:20 | XMS_ITS | Encounter Summary ---
Author Organization [facility] Address [address] [facility] [place] [address] Care Team Providers Care Boiler Engineer Name Role Phone Ambar Comer CLEAN OUT DRILLER HELPER Unavailable Rosario Kerr DO Primary Care Provider [phone] Leland Tamez Portillo DO Unavailable [phone] Encounter Details DateTypeDepartmentCare Team (Latest Contact Info)Npyijgcayvo75/13/2025Bamboo flowsheet [facility] [address] [place] [address] Benedicto Sol DO [address] [facility] [place] [address] Social History Tobacco UseTypesPacks/DayYears UsedDateSmoking Tobacco: FormerCigarettes Smokeless Tobacco: NeverAlcohol UseStandard Drinks/WeekCommentsNever0 (1 standard drink = 0.6 oz pure alcohol)caffeine:once a dayCommentsNoSex and Gender InformationValueDate RecordedSex Assigned at BirthNot on fileLegal IsdBtixll24/15/2023 7:09 PM EDTGender IdentityNot on fileSexual OrientationNot on filedocumented as of this encounter Plan of Treatment Not on file documented as of this encounter Visit Diagnoses Not on filedocumented in this encounter Care Teams Team MemberRelationshipSpecialtyStart DateEnd Date Rosario Kerr DO [address] [place] [address] PCP - GeneralFamily Medicine01/21/24 Ambar Comer NP [address] [place] [address] Referring [facility]icianHom[facility] Medicine11/29/23 Leland Tamez DO [address] [place] [address] Otolaryngology02/26/24documented as of this encounter
--- OUTSIDE RECORDS SUMMARY | 2025-05-18 20:20 | XMS_ITS | Patient Health Record ---
Author Organization [facility] Address [address] [place] [address] Care Team Providers Care Teacher Nursery [employer] Name Role Phone Levi Kessler Primary Care Provider Dr. Ayaan Mayfield Unavailable [phone] Ange [place]ows Unavailable [phone] Brittany Ramirez Unavailable [phone] Reason For Referral No Information Plan Of Treatment No Information Insurance Providers Payer Name Payer Address Payer Phone Subscriber Number Group Number Insured Name Patient Relationship to Insured Coverage Start Date Coverage End Date [employer] [place] [employer] [address] [place] [address] [id number] LENORA PRADO Self - patient is the insured 4 [employer] [address] [place] [address] [phone] [id number] LENORA PRADO Self - patient is the insured 4 [facility] [address] [address] [place] [address] [phone], BAILEYSelf - patient is the [id number] 2023
--- OUTSIDE RECORDS SUMMARY | 2025-05-18 20:20 | XMS_ITS | Encounter Summary ---
Author Organization [facility] Address [address] [facility] [place] [address] Care Team Providers Care Quantitative Software Engineer Name Role Phone Ambar Comer FIREARMS SPECIALIST Unavailable Rosario Kerr DO Primary Care Provider [phone] Leland Tamez DO Unavailable [phone] Encounter Details DateTypeDepartmentCare Team (Latest Contact Info)Yqxulrihsnw76/27/2025Bamboo flowsheet [facility] [address] [facility] [phone] Rosario Varela PA [address] [facility] [address] [place], [facility] Social History Tobacco UseTypesPacks/DayYears UsedDateSmoking Tobacco: FormerCigarettes Smokeless Tobacco: NeverAlcohol UseStandard Drinks/WeekCommentsNever0 (1 standard drink = 0.6 oz pure alcohol)caffeine:once a dayCommentsNoSex and Gender InformationValueDate RecordedSex Assigned at BirthNot on fileLegal EapCutxdh19/15/2023 7:09 PM EDTGender IdentityNot on fileSexual OrientationNot on filedocumented as of this encounter Plan of Treatment Not on file documented as of this encounter Visit Diagnoses Not on filedocumented in this encounter Care Teams Team MemberRelationshipSpecialtyStart DateEnd Date Rosario Kerr DO [address] [place] [address] PCP - GeneralFamily Medicine01/21/24 Ambar Comer NP [address] [place] [address] Referring Physicianmi Medicine11/29/23 Leland Tamez DO [address] [place] [address] Otolaryngology02/26/24documented as of this encounter
[2025-05-21 13:08] LABS: Age Gdln ACOG Testing Note (.); IGP, rfx Aptima HPV ASCU Note (.)
== END 2025-05-18 20:15 | disposition home or self-care (01) ==
LOC: LAB 20:14
PROVIDERS: Visit Provider Physician Assistant
DX: Z01.419 Encounter for gynecological examination (general) (routine) without abnormal findings (principal)
CPT/HCPCS: 88175